=== PATIENT | female | born 1955 | race Caucasian/White ===

== ENCOUNTER 2020-04-13 15:23 | Emergency (ER) | payer OTHER, SELFPAY ==
[2020-04-13 15:30] VITALS: BP 136/65; PULSE 77; RESP 16; TEMP 36.4; O2SAT 100; BMI 19.5
--- NOTE | 2020-04-13 16:15 | DI.CT.S_ITS ---
PROCEDURE: CT HEAD/BRAIN WO CON INDICATIONS: psychosis TECHNIQUE: Noncontrast 4.5 mm thick angled axial sections acquired from the foramen magnum to the vertex, with coronal and sagittal reformats. For radiation dose reduction, the following was used: automated exposure control, adjustment of mA and/or kV according to patient size. COMPARISON: [facility], MR, MR BRAIN WITHOUT CONTRAST, 12/23/2019, 11:15. [facility], CT, CT BRAIN WO CON, 02/12/2015, 11:40. [facility], CT, BRAIN W/O CONTRAST, 01/04/2015, 15:37. FINDINGS: Image quality: Excellent. CSF spaces: Basal cisterns are patent. No extra-axial fluid collections. The ventricles are symmetric in size and shape. Brain: No intracranial bleeds or masses. There is cerebral volume loss for age, with resultant ventricular and sulcal prominence. There are periventricular and deep white matter chronic small vessel ischemic changes. There is intracranial internal carotid artery atherosclerosis. Skull and face: Calvarium and visualized facial bones appear intact, without suspicious lesions. Sinuses: Visualized sinuses and mastoids are clear. Postsurgical changes compatible with prior functional endoscopic sinus surgery noted. IMPRESSION: No acute intracranial disease process. Dictated by: Kristi Ray MD, PhD on 04/13/2020 at 16:29 Approved by: Kristi Ray MD, PhD on 04/13/2020 at 16:37
[2020-04-13 16:46] LABS: Add Manual Diff / Slide Review NO; Basophils Absolute Auto 100 /uL (0-100); Basophils Percent Auto 1.1 % (0-2); Eosinophils Absolute Auto 400 /uL (0-450); Eosinophils Percent Auto 5.9 % (2-4); Hematocrit 36.9 % (36-46); Hemoglobin 12.3 g/dL (12.0-16.0); Lymphocytes Absolute Auto 1300 /uL (1100-4500); Lymphocytes Percent Auto 21.3 % (25-40); Mean Corpuscular HGB Conc 33.3 % (30-36); Mean Corpuscular Hemoglobin 29.7 PG (26-34); Mean Corpuscular Volume 89.2 fL (80-100); Monocytes Absolute Auto 600 /uL (0-900); Monocytes Percent Auto 9.2 % (3-14); Neutrophils Absolute Auto 3800 /uL (1500-7000); Neutrophils Percent Auto 62.5 % (50-75); Platelet Count 213 X10^3/uL (150-400); Red Blood Cell Count 4.14 X10^6/uL (4.0-5.2); Red Cell Distribution Width 14.4 % (11.6-14.8); White Blood Cell Count 6.1 X10^3/uL (4.5-11.0)
[2020-04-13 16:57] LABS: UR Morphine/Opiate cutoff 300 Negative (Negative); Ur Creatinine Normal (Normal); Ur Specific Gravity Normal (Normal); Urine Amphetamines Negative (Negative); Urine Barbiturates Negative (Negative); Urine Benzodiazepines Positive (Negative); Urine Cocaine Negative (Negative); Urine MDMA Negative (Negative); Urine Methadone Negative (Negative); Urine Methamphetamines Negative (Negative); Urine Oxycodone Negative (Negative); Urine Phencyclidine Negative (Negative); Urine Tetrahydrocannabinol Negative (Negative); Urine Tricyclic Antidepressant Negative (Negative); Urine pH Normal (Normal)
[2020-04-13 16:58] LABS: Alanine Aminotransferase 17 IU/L (<35); Albumin 3.7 g/dL (3.5-5.0); Albumin Globulin Ratio 1.5 (1.0-2.8); Alkaline Phosphatase 69 U/L (38-126); Aspartate Aminotransferase 24 IU/L (14-36); BUN Creatinine Ratio 19.4 (6-22); Bilirubin Total 0.8 mg/dL (0.2-1.3); Blood Urea Nitrogen 14 mg/dL (7-17); Calcium 8.9 mg/dL (8.4-10.2); Carbon Dioxide 32 mmol/L (22-32); Chloride 103 mmol/L (98-107); Estimated Glomerular Filt Rate > 60.0 mL/min (>60); Globulin 2.5 g/dL (1.7-4.1); Glucose 101 mg/dL (80-110); HEMOLYSIS < 15 (0-50); Potassium 3.7 mmol/L (3.4-5.1); Sodium 138 mmol/L (137-145); Total Protein 6.2 g/dL (6.3-8.2)
[2020-04-13 16:59] LABS: Ethanol (ETOH) < 10 mg/dL
[2020-04-13 17:11] LABS: COVID19 -Nasal RAPID Negative (Negative)
[2020-04-13 17:39] LABS: Thyroid Stimulating Hormone 0.276 uIU/mL (0.47-4.68)
--- NOTE | 2020-04-13 17:41 | ED_ITS ---
HPI - Psych <Megan Patterson MD - Last Filed: 04/21/20 00:00> General Chief Complaint: Psychiatric Symptoms Stated Complaint: anxiety Time Seen by Provider: 04/13/20 15:46 Source: patient Mode of arrival: Ambulatory History of Present Illness HPI Narrative: 64-year-old woman sent by her psychiatrist to the emergency department for further evaluation. She has a long history of depression anxiety panic panic attacks and depression with psychosis for which she has been hospitalized. There is a question of schizoaffective disorder as well. She is on multiple medications and antidepressants are not helping at this point. She is having increasing suicidal ideation increasing panic increasingly DIS regulated and more memory issues today. At this point her psychiatrist feels that she is gravely disabled and needs to be evaluated by [facility] with probability of being detained. With 1 test she had have a positive syphilis screen. Patient has been seen by infectious disease specialist at [facility]. She apparently has a severe allergy to penicillin and has been placed on doxycycline. She is also scheduled to see an bordereau clerk to begin penicillin desensitization. Related Data Home Medications Medication Instructions Recorded Confirmed levothyroxine 50 mcg capsule 50 mcg PO DAILY 08/26/19 04/14/20 multivitamin 1 cap PO DAILY 08/26/19 04/10/20 omega-3 fatty acids 1,000 mg 1,000 mg PO DAILY 08/26/19 04/10/20 capsule propranolol 60 mg capsule,24 60 mg PO BID cap 08/26/19 04/14/20 hr,extended release sumatriptan succinate 100 mg tablet 100 mg PO ONCE PRN 08/26/19 04/14/20 amlodipine 5 mg tablet 5 mg PO BEDTIME 09/22/19 04/14/20 nystatin 500,000 unit tablet 1,000,000 unit PO BID tab 10/31/19 04/14/20 estradiol 10 mcg vaginal tablet 10 mcg VAG DAILY 04/10/20 04/10/20 gabapentin 900 mg PO BEDTIME 04/14/20 04/14/20 Previous Rx's Medication Instructions Recorded hydroxyzine HCl 10 mg tablet 10 mg PO Q6H PRN #120 tab MDD 40mg 01/16/20 vilazodone 40 mg tablet 40 mg PO DAILY #30 tab 04/02/20 risperidone 1 mg tablet 1 mg PO BEDTIME #30 tab 04/10/20 diazepam 5 mg tablet 5 mg PO BEDTIME PRN #30 tab 04/19/20 Allergies Allergy/AdvReac Type Severity Reaction Status Date / Time amoxicillin [From Augmentin] AdvReac Intermediate Diarrhea Verified 04/13/20 19:31 clavulanic acid AdvReac Intermediate Diarrhea Verified 04/13/20 19:31 [From Augmentin] Sulfa (Sulfonamide AdvReac Intermediate Shakiness Verified 04/13/20 19:31 Antibiotics) <Faraz Nagel DO - Last Filed: 04/15/20 00:31> Constitutional Constitutional: Denies chills, Denies fatigue, Denies fever(s), Denies frequent falls, Denies lethargy and Denies weakness Eyes Eyes: Denies change in vision, Denies eye discharge, Denies irritation and Denies loss of vision ENT Ears, Nose, Mouth, and Throat: Denies change in voice, Denies dizziness, Denies neck pain, Denies sore throat and Denies throat swelling Cardiovascular Cardiovascular: Denies chest pain, Denies irregular heart rhythm, Denies lightheadedness, Denies palpitations, Denies dyspnea, Denies dyspnea on exertion and Denies orthopnea Respiratory Respiratory: Denies cough, Denies dyspnea, Denies dyspnea on exertion and Denies wheezing Gastrointestinal Gastrointestinal: Denies abdominal pain, Denies change in bowel habits, Denies diarrhea, Denies nausea and Denies vomiting Musculoskeletal Musculoskeletal: Denies neck pain and Denies numbness Integumentary/Breasts Skin/Breast: Denies pruritus, Denies erythema, Denies rash and Denies wounds Neurologic Neurologic: Denies behavioral changes, Denies confusion, Denies dizziness, Denies frequent falls, Denies loss of vision, Denies numbness and Denies weakness Psychiatric Psychiatric: Reports anxiety, Denies behavioral changes, Denies confusion, Reports depression, Reports mood swings, Reports paranoia, Denies homicidal ideation and Reports suicidal ideation Endocrine Endocrine: Denies fatigue, Denies flushing and Denies palpitations Hematologic/Lymphatic Hematologic/Lymphatic: Denies easy bruising Allergic/Immunologic Allergic/Immunologic: Denies urticaria, Denies throat swelling and Denies wheezing Patient History <Megan Patterson MD - Last Filed: 04/21/20 00:00> Social History Smoking Status: Former smoker Smoking Status: Former smoker Exam <Megan Patterson MD - Last Filed: 04/21/20 00:00> Initial Vital Signs Initial Vital Signs: Vital Signs Temperature 97.6 F 04/13/20 15:30 Pulse Rate 77 04/13/20 15:30 Respiratory Rate 16 04/13/20 15:30 Blood Pressure 136/65 04/13/20 15:30 Pulse Oximetry 100 04/13/20 15:30 <Faraz Nagel DO - Last Filed: 04/15/20 00:31> Narrative Exam Narrative: GENERAL: [64] year old patient appears stated age. Well- nourished, well-developed patient, in moderate distress, tearful, anxious HEAD: Atraumatic. Normocephalic. EYES: Pupils equal round and reactive. Extraocular motions intact. No scleral icterus. No injection or drainage. ENT: Nose without bleeding, purulent drainage. Throat without erythema, tonsillar hypertrophy or exudate. Airway patent. NECK: Trachea midline. Non tender CARDIOVASCULAR: Regular rate and rhythm without murmurs, gallops, or rubs. RESPIRATORY: Clear to auscultation. Breath sounds equal bilaterally. No wheezes, rales, or rhonchi. GASTROINTESTINAL: Abdomen soft, non-tender, nondistended. EXTREMITIES: No edema or joint tenderness. BACK: Nontender without deformity or crepitance. No flank tenderness. NEURO: AOx3. SKIN: No rash or erythema of visible areas Initial Vital Signs Initial Vital Signs: Vital Signs Temperature 97.6 F 04/13/20 15:30 Pulse Rate 77 04/13/20 15:30 Respiratory Rate 16 04/13/20 15:30 Blood Pressure 136/65 04/13/20 15:30 Pulse Oximetry 100 04/13/20 15:30 <Astrid Lowry DO - Last Filed: 04/15/20 07:23> Initial Vital Signs Initial Vital Signs: Vital Signs Temperature 97.6 F 04/13/20 15:30 Pulse Rate 77 04/13/20 15:30 Respiratory Rate 16 04/13/20 15:30 Blood Pressure 136/65 04/13/20 15:30 Pulse Oximetry 100 04/13/20 15:30 Course <Megan Patterson MD - Last Filed: 04/21/20 00:00> Orders Ordered: Discontinued Medications Diazepam (Valium) 5 mg PO NOW ONE Stop: 04/14/20 00:10 Last Admin: 04/14/20 00:27 Dose: 5 mg Documented by: JOVI Gabapentin (Neurontin) 600 mg PO NOW ONE Stop: 04/13/20 23:16 Last Admin: 04/14/20 00:06 Dose: 600 mg Documented by: JOVI Gabapentin (Neurontin) 900 mg PO BEDTIME [facility] Levothyroxine Sodium (Synthroid) 50 mcg PO 0600 [facility] Last Admin: 04/14/20 08:36 Dose: 50 mcg Documented by: DIDI Lorazepam (Ativan) 1 mg PO NOW ONE Stop: 04/13/20 19:27 Last Admin: 04/13/20 19:45 Dose: 1 mg Documented by: JOHN Propranolol HCl (Inderal La) 60 mg PO NOW ONE Stop: 04/13/20 23:14 Last Admin: 04/14/20 00:46 Dose: Not Given Documented by: JOVI Propranolol HCl (Inderal) 60 mg PO NOW ONE Stop: 04/13/20 23:51 Last Admin: 04/14/20 03:07 Dose: Not Given Documented by: JOVI Propranolol HCl (Inderal La) 60 mg PO DAILY [facility] Last Admin: 04/14/20 08:36 Dose: 60 mg Documented by: DIDI Risperidone (Risperdal) 1 mg PO NOW ONE Stop: 04/13/20 23:16 Last Admin: 04/14/20 00:06 Dose: 1 mg Documented by: JOVI Risperidone (Risperdal) 1 mg PO DAILY [facility] Last Admin: 04/14/20 10:31 Dose: Not Given Documented by: DIDI Vital Signs Vital signs: Vital Signs - 8 hr 04/14/20 19:23 Pulse Rate 71 Respiratory Rate 18 Blood Pressure 132/64 Pulse Oximetry 99 <Faraz Nagel DO - Last Filed: 04/15/20 00:31> Course Course Narrative: extensive discussion with MICHELLE, please see his note for de tails. Patient currently voluntary. Pursuing bed placement at [facility] 2129 - [facility] calls and no longer has an appropriate bed 2214 - nursing has called other facilities, possible option is [facility], but they have no ability to entertain intake tonight. 0049 - patient resting comfortably. Aware that she will be with us for the evening. Orders Ordered: Discontinued Medications Diazepam (Valium) 5 mg PO NOW ONE Stop: 04/14/20 00:10 Last Admin: 04/14/20 00:27 Dose: 5 mg Documented by: JOVI Gabapentin (Neurontin) 600 mg PO NOW ONE Stop: 04/13/20 23:16 Last Admin: 04/14/20 00:06 Dose: 600 mg Documented by: JOVI Gabapentin (Neurontin) 900 mg PO BEDTIME [facility] Levothyroxine Sodium (Synthroid) 50 mcg PO 0600 [facility] Last Admin: 04/14/20 08:36 Dose: 50 mcg Documented by: DIDI Lorazepam (Ativan) 1 mg PO NOW ONE Stop: 04/13/20 19:27 Last Admin: 04/13/20 19:45 Dose: 1 mg Documented by: JOHN Propranolol HCl (Inderal La) 60 mg PO NOW ONE Stop: 04/13/20 23:14 Last Admin: 04/14/20 00:46 Dose: Not Given Documented by: JOVI Propranolol HCl (Inderal) 60 mg PO NOW ONE Stop: 04/13/20 23:51 Last Admin: 04/14/20 03:07 Dose: Not Given Documented by: JOVI Propranolol HCl (Inderal La) 60 mg PO DAILY [facility] Last Admin: 04/14/20 08:36 Dose: 60 mg Documented by: DIDI Risperidone (Risperdal) 1 mg PO NOW ONE Stop: 04/13/20 23:16 Last Admin: 04/14/20 00:06 Dose: 1 mg Documented by: JOVI Risperidone (Risperdal) 1 mg PO DAILY [facility] Last Admin: 04/14/20 10:31 Dose: Not Given Documented by: DIDI Vital Signs Vital signs: Vital Signs - 8 hr 04/14/20 19:23 Pulse Rate 71 Respiratory Rate 18 Blood Pressure 132/64 Pulse Oximetry 99 <Astrid Lowry DO - Last Filed: 04/15/20 07:23> Orders Ordered: Discontinued Medications Diazepam (Valium) 5 mg PO NOW ONE Stop: 04/14/20 00:10 Last Admin: 04/14/20 00:27 Dose: 5 mg Documented by: JOVI Gabapentin (Neurontin) 600 mg PO NOW ONE Stop: 04/13/20 23:16 Last Admin: 04/14/20 00:06 Dose: 600 mg Documented by: JOVI Gabapentin (Neurontin) 900 mg PO BEDTIME [facility] Levothyroxine Sodium (Synthroid) 50 mcg PO 0600 [facility] Last Admin: 04/14/20 08:36 Dose: 50 mcg Documented by: DIDI Lorazepam (Ativan) 1 mg PO NOW ONE Stop: 04/13/20 19:27 Last Admin: 04/13/20 19:45 Dose: 1 mg Documented by: JOHN Propranolol HCl (Inderal La) 60 mg PO NOW ONE Stop: 04/13/20 23:14 Last Admin: 04/14/20 00:46 Dose: Not Given Documented by: JOVI Propranolol HCl (Inderal) 60 mg PO NOW ONE Stop: 04/13/20 23:51 Last Admin: 04/14/20 03:07 Dose: Not Given Documented by: JOVI Propranolol HCl (Inderal La) 60 mg PO DAILY [facility] Last Admin: 04/14/20 08:36 Dose: 60 mg Documented by: DIDI Risperidone (Risperdal) 1 mg PO NOW ONE Stop: 04/13/20 23:16 Last Admin: 04/14/20 00:06 Dose: 1 mg Documented by: JOVI Risperidone (Risperdal) 1 mg PO DAILY [facility] Last Admin: 04/14/20 10:31 Dose: Not Given Documented by: DIDI Vital Signs Vital signs: Vital Signs - 8 hr 04/14/20 19:23 Pulse Rate 71 Respiratory Rate 18 Blood Pressure 132/64 Pulse Oximetry 99 MDM - Psych <Megan Patterson MD - Last Filed: 04/21/20 00:00> Lab Data Result diagrams: 04/13/20 16:39 04/13/20 16:39 Labs: Lab Results 04/13/20 04/13/20 04/13/20 Range/Units 16:39 16:39 16:39 WBC 6.1 (4.5-11.0) X10^3/uL RBC 4.14 (4.0-5.2) X10^6/uL Hgb 12.3 (12.0-16.0) g/dL Hct 36.9 (36-46) % MCV 89.2 (80-100) fL MCH 29.7 (26-34) PG MCHC 33.3 (30-36) % RDW 14.4 (11.6-14.8) % Plt Count 213 (150-400) X10^3/uL Neut % (Auto) 62.5 (50-75) % Lymph % (Auto) 21.3 L (25-40) % Finney % (Auto) 9.2 (3-14) % Eos % (Auto) 5.9 H (2-4) % Baso % (Auto) 1.1 (0-2) % Neut # (Auto) 3800 (6941-0054) /uL Lymph # (Auto) 1300 (2355-8616) /uL Finney # (Auto) 600 (0-900) /uL Eos # (Auto) 400 (0-450) /uL Baso # (Auto) 100 (0-100) /uL Sodium 138 (137-145) mmol/L Potassium 3.7 (3.4-5.1) mmol/L Chloride 103 (98-107) mmol/L Carbon Dioxide 32 (22-32) mmol/L BUN 14 (7-17) mg/dL Creatinine 0.72 (0.52-1.04) mg/dL Estimated GFR > 60.0 (>60) mL/min BUN/Creatinine Ratio 19.4 (6-22) Glucose 101 (80-110) mg/dL Calcium 8.9 (8.4-10.2) mg/dL Total Bilirubin 0.8 (0.2-1.3) mg/dL AST 24 (14-36) IU/L ALT 17 (<35) IU/L Alkaline Phosphatase 69 (38-126) U/L Total Protein 6.2 L (6.3-8.2) g/dL Albumin 3.7 (3.5-5.0) g/dL Globulin 2.5 (1.7-4.1) g/dL Albumin/Globulin Ratio 1.5 (1.0-2.8) TSH (0.47-4.68) uIU/mL U Opiates 300ng/mL cut (Negative) Ur Oxycodone Screen (Negative) Urine Methadone Screen (Negative) Ur Barbiturates Screen (Negative) U Tricyclic Antidepress (Negative) Ur Phencyclidine Scrn (Negative) Ur Amphetamines Screen (Negative) U Methamphetamines Scrn (Negative) Ur MDMA Scrn (Ecstasy) (Negative) U Benzodiazepines Scrn (Negative) Urine Cocaine Screen (Negative) U Marijuana (THC) Screen (Negative) Ethyl Alcohol < 10 ( - 10) mg/dL COVID-19 PCR (Negative) 04/13/20 04/13/20 04/13/20 Range/Units 16:39 16:40 16:50 WBC (4.5-11.0) X10^3/uL RBC (4.0-5.2) X10^6/uL Hgb (12.0-16.0) g/dL Hct (36-46) % MCV (80-100) fL MCH (26-34) PG MCHC (30-36) % RDW (11.6-14.8) % Plt Count (150-400) X10^3/uL Neut % (Auto) (50-75) % Lymph % (Auto) (25-40) % Finney % (Auto) (3-14) % Eos % (Auto) (2-4) % Baso % (Auto) (0-2) % Neut # (Auto) (3195-2686) /uL Lymph # (Auto) (6411-9210) /uL Finney # (Auto) (0-900) /uL Eos # (Auto) (0-450) /uL Baso # (Auto) (0-100) /uL Sodium (137-145) mmol/L Potassium (3.4-5.1) mmol/L Chloride (98-107) mmol/L Carbon Dioxide (22-32) mmol/L BUN (7-17) mg/dL Creatinine (0.52-1.04) mg/dL Estimated GFR (>60) mL/min BUN/Creatinine Ratio (6-22) Glucose (80-110) mg/dL Calcium (8.4-10.2) mg/dL Total Bilirubin (0.2-1.3) mg/dL AST (14-36) IU/L ALT (<35) IU/L Alkaline Phosphatase (38-126) U/L Total Protein (6.3-8.2) g/dL Albumin (3.5-5.0) g/dL Globulin (1.7-4.1) g/dL Albumin/Globulin Ratio (1.0-2.8) TSH 0.276 L (0.47-4.68) uIU/mL U Opiates 300ng/mL cut Negative (Negative) Ur Oxycodone Screen Negative (Negative) Urine Methadone Screen Negative (Negative) Ur Barbiturates Screen Negative (Negative) U Tricyclic Antidepress Negative (Negative) Ur Phencyclidine Scrn Negative (Negative) Ur Amphetamines Screen Negative (Negative) U Methamphetamines Scrn Negative (Negative) Ur MDMA Scrn (Ecstasy) Negative (Negative) U Benzodiazepines Scrn Positive H (Negative) Urine Cocaine Screen Negative (Negative) U Marijuana (THC) Screen Negative (Negative) Ethyl Alcohol ( - 10) mg/dL COVID-19 PCR Negative (Negative) <Faraz Nagel, DO - Last Filed: 04/15/20 00:31> Lab Data Labs: Lab Results 04/13/20 04/13/20 04/13/20 Range/Units 16:39 16:39 16:39 WBC 6.1 (4.5-11.0) X10^3/uL RBC 4.14 (4.0-5.2) X10^6/uL Hgb 12.3 (12.0-16.0) g/dL Hct 36.9 (36-46) % MCV 89.2 (80-100) fL MCH 29.7 (26-34) PG MCHC 33.3 (30-36) % RDW 14.4 (11.6-14.8) % Plt Count 213 (150-400) X10^3/uL Neut % (Auto) 62.5 (50-75) % Lymph % (Auto) 21.3 L (25-40) % Finney % (Auto) 9.2 (3-14) % Eos % (Auto) 5.9 H (2-4) % Baso % (Auto) 1.1 (0-2) % Neut # (Auto) 3800 (7168-2439) /uL Lymph # (Auto) 1300 (2149-2878) /uL Finney # (Auto) 600 (0-900) /uL Eos # (Auto) 400 (0-450) /uL Baso # (Auto) 100 (0-100) /uL Sodium 138 (137-145) mmol/L Potassium 3.7 (3.4-5.1) mmol/L Chloride 103 (98-107) mmol/L Carbon Dioxide 32 (22-32) mmol/L BUN 14 (7-17) mg/dL Creatinine 0.72 (0.52-1.04) mg/dL Estimated GFR > 60.0 (>60) mL/min BUN/Creatinine Ratio 19.4 (6-22) Glucose 101 (80-110) mg/dL Calcium 8.9 (8.4-10.2) mg/dL Total Bilirubin 0.8 (0.2-1.3) mg/dL AST 24 (14-36) IU/L ALT 17 (<35) IU/L Alkaline Phosphatase 69 (38-126) U/L Total Protein 6.2 L (6.3-8.2) g/dL Albumin 3.7 (3.5-5.0) g/dL Globulin 2.5 (1.7-4.1) g/dL Albumin/Globulin Ratio 1.5 (1.0-2.8) TSH (0.47-4.68) uIU/mL U Opiates 300ng/mL cut (Negative) Ur Oxycodone Screen (Negative) Urine Methadone Screen (Negative) Ur Barbiturates Screen (Negative) U Tricyclic Antidepress (Negative) Ur Phencyclidine Scrn (Negative) Ur Amphetamines Screen (Negative) U Methamphetamines Scrn (Negative) Ur MDMA Scrn (Ecstasy) (Negative) U Benzodiazepines Scrn (Negative) Urine Cocaine Screen (Negative) U Marijuana (THC) Screen (Negative) Ethyl Alcohol < 10 ( - 10) mg/dL COVID-19 PCR (Negative) 04/13/20 04/13/20 04/13/20 Range/Units 16:39 16:40 16:50 WBC (4.5-11.0) X10^3/uL RBC (4.0-5.2) X10^6/uL Hgb (12.0-16.0) g/dL Hct (36-46) % MCV (80-100) fL MCH (26-34) PG MCHC (30-36) % RDW (11.6-14.8) % Plt Count (150-400) X10^3/uL Neut % (Auto) (50-75) % Lymph % (Auto) (25-40) % Finney % (Auto) (3-14) % Eos % (Auto) (2-4) % Baso % (Auto) (0-2) % Neut # (Auto) (7882-4451) /uL Lymph # (Auto) (9922-3344) /uL Finney # (Auto) (0-900) /uL Eos # (Auto) (0-450) /uL Baso # (Auto) (0-100) /uL Sodium (137-145) mmol/L Potassium (3.4-5.1) mmol/L Chloride (98-107) mmol/L Carbon Dioxide (22-32) mmol/L BUN (7-17) mg/dL Creatinine (0.52-1.04) mg/dL Estimated GFR (>60) mL/min BUN/Creatinine Ratio (6-22) Glucose (80-110) mg/dL Calcium (8.4-10.2) mg/dL Total Bilirubin (0.2-1.3) mg/dL AST (14-36) IU/L ALT (<35) IU/L Alkaline Phosphatase (38-126) U/L Total Protein (6.3-8.2) g/dL Albumin (3.5-5.0) g/dL Globulin (1.7-4.1) g/dL Albumin/Globulin Ratio (1.0-2.8) TSH 0.276 L (0.47-4.68) uIU/mL U Opiates 300ng/mL cut Negative (Negative) Ur Oxycodone Screen Negative (Negative) Urine Methadone Screen Negative (Negative) Ur Barbiturates Screen Negative (Negative) U Tricyclic Antidepress Negative (Negative) Ur Phencyclidine Scrn Negative (Negative) Ur Amphetamines Screen Negative (Negative) U Methamphetamines Scrn Negative (Negative) Ur MDMA Scrn (Ecstasy) Negative (Negative) U Benzodiazepines Scrn Positive H (Negative) Urine Cocaine Screen Negative (Negative) U Marijuana (THC) Screen Negative (Negative) Ethyl Alcohol ( - 10) mg/dL COVID-19 PCR Negative (Negative) <Astrid Lowry DO - Last Filed: 04/15/20 07:23> Lab Data Attestation: I reviewed the patient's lab results. Labs: Lab Results 04/13/20 04/13/20 04/13/20 Range/Units 16:39 16:39 16:39 WBC 6.1 (4.5-11.0) X10^3/uL RBC 4.14 (4.0-5.2) X10^6/uL Hgb 12.3 (12.0-16.0) g/dL Hct 36.9 (36-46) % MCV 89.2 (80-100) fL MCH 29.7 (26-34) PG MCHC 33.3 (30-36) % RDW 14.4 (11.6-14.8) % Plt Count 213 (150-400) X10^3/uL Neut % (Auto) 62.5 (50-75) % Lymph % (Auto) 21.3 L (25-40) % Finney % (Auto) 9.2 (3-14) % Eos % (Auto) 5.9 H (2-4) % Baso % (Auto) 1.1 (0-2) % Neut # (Auto) 3800 (3767-8135) /uL Lymph # (Auto) 1300 (6711-1774) /uL Finney # (Auto) 600 (0-900) /uL Eos # (Auto) 400 (0-450) /uL Baso # (Auto) 100 (0-100) /uL Sodium 138 (137-145) mmol/L Potassium 3.7 (3.4-5.1) mmol/L Chloride 103 (98-107) mmol/L Carbon Dioxide 32 (22-32) mmol/L BUN 14 (7-17) mg/dL Creatinine 0.72 (0.52-1.04) mg/dL Estimated GFR > 60.0 (>60) mL/min BUN/Creatinine Ratio 19.4 (6-22) Glucose 101 (80-110) mg/dL Calcium 8.9 (8.4-10.2) mg/dL Total Bilirubin 0.8 (0.2-1.3) mg/dL AST 24 (14-36) IU/L ALT 17 (<35) IU/L Alkaline Phosphatase 69 (38-126) U/L Total Protein 6.2 L (6.3-8.2) g/dL Albumin 3.7 (3.5-5.0) g/dL Globulin 2.5 (1.7-4.1) g/dL Albumin/Globulin Ratio 1.5 (1.0-2.8) TSH (0.47-4.68) uIU/mL U Opiates 300ng/mL cut (Negative) Ur Oxycodone Screen (Negative) Urine Methadone Screen (Negative) Ur Barbiturates Screen (Negative) U Tricyclic Antidepress (Negative) Ur Phencyclidine Scrn (Negative) Ur Amphetamines Screen (Negative) U Methamphetamines Scrn (Negative) Ur MDMA Scrn (Ecstasy) (Negative) U Benzodiazepines Scrn (Negative) Urine Cocaine Screen (Negative) U Marijuana (THC) Screen (Negative) Ethyl Alcohol < 10 ( - 10) mg/dL COVID-19 PCR (Negative) 04/13/20 04/13/20 04/13/20 Range/Units 16:39 16:40 16:50 WBC (4.5-11.0) X10^3/uL RBC (4.0-5.2) X10^6/uL Hgb (12.0-16.0) g/dL Hct (36-46) % MCV (80-100) fL MCH (26-34) PG MCHC (30-36) % RDW (11.6-14.8) % Plt Count (150-400) X10^3/uL Neut % (Auto) (50-75) % Lymph % (Auto) (25-40) % Finney % (Auto) (3-14) % Eos % (Auto) (2-4) % Baso % (Auto) (0-2) % Neut # (Auto) (2539-7310) /uL Lymph # (Auto) (9206-8869) /uL Finney # (Auto) (0-900) /uL Eos # (Auto) (0-450) /uL Baso # (Auto) (0-100) /uL Sodium (137-145) mmol/L Potassium (3.4-5.1) mmol/L Chloride (98-107) mmol/L Carbon Dioxide (22-32) mmol/L BUN (7-17) mg/dL Creatinine (0.52-1.04) mg/dL Estimated GFR (>60) mL/min BUN/Creatinine Ratio (6-22) Glucose (80-110) mg/dL Calcium (8.4-10.2) mg/dL Total Bilirubin (0.2-1.3) mg/dL AST (14-36) IU/L ALT (<35) IU/L Alkaline Phosphatase (38-126) U/L Total Protein (6.3-8.2) g/dL Albumin (3.5-5.0) g/dL Globulin (1.7-4.1) g/dL Albumin/Globulin Ratio (1.0-2.8) TSH 0.276 L (0.47-4.68) uIU/mL U Opiates 300ng/mL cut Negative (Negative) Ur Oxycodone Screen Negative (Negative) Urine Methadone Screen Negative (Negative) Ur Barbiturates Screen Negative (Negative) U Tricyclic Antidepress Negative (Negative) Ur Phencyclidine Scrn Negative (Negative) Ur Amphetamines Screen Negative (Negative) U Methamphetamines Scrn Negative (Negative) Ur MDMA Scrn (Ecstasy) Negative (Negative) U Benzodiazepines Scrn Positive H (Negative) Urine Cocaine Screen Negative (Negative) U Marijuana (THC) Screen Negative (Negative) Ethyl Alcohol ( - 10) mg/dL COVID-19 PCR Negative (Negative) MDM Narrative Medical decision making narrative: Patient is signed out to me by Dr. Nagel I have seen and evaluated patient myself. She is quite cooperative seems to be v oluntary and still wanting placement. She really wants to go the [facility] like Dr. Alexis has recommended. However social work has been reviewing charts and looking at places. Concern is that there is recommendation for neuropsych possibly early dementia and she still requires self catheterization. Placement has become very difficult she has been refused at least 3 different places. Spoken with the patient's he states that today she seems like a new person he is quite shocked because the past few weeks she has been much of what was seen yesterday. This may be short lived. I discussed with him being able to take patient home versus having her stay in the ER saying is that there is no placement. He is actually off work for the next 2 days he would be very comf ortable bringing her home however patient is uncertain about that idea. At this time patient would prefer to go home she understands that she may return back to the ER at any time. 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 Alexis as soon as possible please call her office Thursday are notes will be sent to her. You do need to get into the [facility] however that is not an option at this time If you are feeling suicidal or having suicidal thoughts: Call: Suicide Hotline: Visit: www.[employer] Text: 056767 *Continue to take medications as directed *Follow up with your primary care provider in 2-3 days *Return to ER if you should have increased thoughts of suicide, increase confusion or any new, worsening or concerning symptoms Prescriptions: No Action estradiol [Yuvafem] 10 mcg tablet 10 mcg VAG DAILY RF: 0 risperidone 1 mg tablet 1 mg PO BEDTIME Qty: 30 RF: 0 propranolol 60 mg capsule,extended release 24 hr 60 mg PO BID RF: 0 levothyroxine 50 mcg capsule 50 mcg PO DAILY RF: 0 sumatriptan succinate [Imitrex] 100 mg tablet 100 mg PO ONCE PRN (Reason: migraine headache) RF: 0 multivitamin Capsule 1 cap PO DAILY RF: 0 omega-3 fatty acids [Fish Oil Concentrate] 1,000 mg capsule 1,000 mg PO DAILY RF: 0 nystatin 500,000 unit tablet 1,000,000 unit PO BID RF: 0 hydroxyzine HCl 10 mg tablet 10 mg PO Q6H MDD 40mg PRN (Reason: severe anxiety) Qty: 120 RF: 1 amlodipine 5 mg tablet 5 mg PO BEDTIME RF: 0 Viibryd 40 mg tablet 40 mg PO DAILY Qty: 30 RF: 0 diazepam 5 mg tablet 5 mg PO BEDTIME PRN (Reason: sleep/anxiety) Qty: 30 RF: 0 gabapentin 600 mg tablet 900 mg PO BEDTIME RF: 0 Referrals: Anitra Alexis DO [Physician] - ED Sign-out <Megan Patterson MD - Last Filed: 04/21/20 00:00> Cosign ED Attending Cosignature Attestation: I was immediately available in the department for consultation throughout this patient's visit. I agree with documentation as above. Megan Patterson MD
[2020-04-13] MEDS: LORazepam 0.5 MG TABLET 1 MG PO (19:45)
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
--- NOTE | 2020-04-13 20:59 | PC.NURSE ---
Pt lying on gurney crying Pt states I dont want to go to [facility] I have been there twice before and it was horrible
--- NOTE | 2020-04-13 21:12 | PC.NURSE ---
Pt was declined at [facility].
--- NOTE | 2020-04-13 21:25 | PC.NURSE ---
Pt went to use restroom with her purse. Sitter requested door to remain unlocked. Pt belonings have been bagged and put in secure storage until Pt leaves ED
--- NOTE | 2020-04-13 21:33 | PC.NURSE ---
Nurse in talking with Pt about being denied at [facility].
--- NOTE | 2020-04-13 22:02 | PC.NURSE ---
Pt is on phone laying in bed.
--- NOTE | 2020-04-13 22:30 | PC.NURSE ---
Pt was provided face wash and toothpaste plus tooth brush to prepare for bed
[2020-04-13 23:26] VITALS: BP 152/79; PULSE 71; RESP 18; O2SAT 100
--- NOTE | 2020-04-14 | PC.NURSE ---
Bianca in dotty w/ Pt
--- NOTE | 2020-04-14 00:05 | PC.NURSE ---
Per Robe, propranolol held since we do not have ER available and pt BP 152/79, he will order diazepam instead.
[2020-04-14] MEDS: GABAPENTIN 600 MG TABLET PO (00:06)
[2020-04-14] MEDS: risperiDONE 1 MG TABLET PO (00:06)
[2020-04-14] MEDS: diazePAM 5 MG TABLET PO (00:27)
--- NOTE | 2020-04-14 02:30 | PC.NURSE ---
Pt using restroom
--- NOTE | 2020-04-14 03:32 | PC.NURSE ---
Tried calling multiple facilities for placement. No bed available. [facility] had beds available. Sent pt's information. was informed pt's packet would not be reviewed until morning
--- NOTE | 2020-04-14 06:47 | PC.NURSE ---
Pt was declined at [facility], R/t medical.
[2020-04-14 08:17] VITALS: BP 118/66; PULSE 95; RESP 17; O2SAT 99
[2020-04-14] MEDS: LEVOTHYROXINE 50 MCG TABLET PO (08:36)
[2020-04-14] MEDS: PROPRANOLOL ER 60 MG CAPSULE PO (08:36)
--- NOTE | 2020-04-14 08:49 | PC.NURSE ---
scial worker at bedside for eval
--- NOTE | 2020-04-14 10:15 | CM.SWNOTE ---
Addendum entered by MICHELLE Yost 04/14/20 14:34: Attempted following facilities: [facility]- will not accept anyone who self [facility]- Full [facility]- Full on adult unit [facility]- Declined [facility], [facility]- currently reviewing records Original Note: FIELD TECH Note Reviewed chart, spoke w/Dr Lowry who suggests patient remains a good candidate for voluntary psychiatric care. Met w/patient this morning to introduce self. Patient standing up in room and flossing. Patient in better spirits this morning, welcomes this FIELD TECH in room, makes good eye contact, conversation is fluid and patient able to communicate needs well. Patient calm and compliant w/care according to staff. Patient A+Ox4. Patient reviews events of yesterday and states immediately that she is not ready to go home. She feels at peace in the notion that she could go to an inpatient psychiatric unit today and does not feel safe returning home w/her family today. Patient Questioned patient as to why she doesn't feel safe and she further explained that she has been struggling w/severe and crippling symptoms of PTSD; depression and anxiety for years but mood swings, paranoia and thoughts of suicide have increased over the last week. Patient states w/in the last two weeks, Everyone is done with me patient admits to thoughts throughout the day of using a gun to kill herself to end it. Patient's and son in law are gun owners and keep guns locked up in house although patient remarks I could figure it out if I needed to (safe lock) Patient admits today she is exhausted and feels desperation; patient has felt the inpatient setting (x2) in the past 6 years has been helpful for crisis stabilization and she is optimistic this FIELD TECH can secure placement today from ED. Will attempt inpatient psychiatric placement as patient would benefit from inpatient stabilization before return home w/family and continued outpatient f/u w/ psychiatrist MICHELLE Yost
--- NOTE | 2020-04-14 16:10 | PC.NURSE ---
director social at bedside to review and update poc with pt
--- NOTE | 2020-04-14 16:15 | PC.NURSE ---
foot worker in room with Pt
--- NOTE | 2020-04-14 19:03 | PC.NURSE ---
Pt in room
[2020-04-14 19:23] VITALS: BP 132/64; PULSE 71; RESP 18; O2SAT 99
== END 2020-04-14 19:25 | disposition home or self-care (01) ==
PROVIDERS: Emergency Medicine; Emergency Provider Emergency Medicine
DX: R45.851 Suicidal ideations (principal); F23 Brief psychotic disorder
CPT/HCPCS: 36415; 70450; 80053; 80305; 80320; 84443; 85025; 87635; 99284

== ENCOUNTER → 2021-05-17 14:53 | Outpatient (CLI) | payer OTHER, SELFPAY ==
[2021-05-17 15:12] LABS: Add Manual Diff / Slide Review NO; Basophils Absolute Auto 0 /uL (0-100); Basophils Percent Auto 0.6 % (0-2); Eosinophils Absolute Auto 100 /uL (0-450); Eosinophils Percent Auto 1.8 % (2-4); Hematocrit 38.6 % (36-46); Lymphocytes Absolute Auto 1200 /uL (1100-4500); Lymphocytes Percent Auto 20.6 % (25-40); Mean Corpuscular HGB Conc 33.6 % (30-36); Mean Corpuscular Volume 89.3 fL (80-100); Monocytes Absolute Auto 500 /uL (0-900); Monocytes Percent Auto 8.4 % (3-14); Neutrophils Absolute Auto 4000 /uL (1500-7000); Neutrophils Percent Auto 68.6 % (50-75); Platelet Count 233 X10^3/uL (150-400); Red Blood Cell Count 4.32 X10^6/uL (4.0-5.2); Red Cell Distribution Width 14.3 % (11.6-14.8); White Blood Cell Count 5.8 X10^3/uL (4.5-11.0)
[2021-05-17 16:57] LABS: Alanine Aminotransferase 18 IU/L (<35); Albumin 4.1 g/dL (3.5-5.0); Albumin Globulin Ratio 1.6 (1.0-2.8); Alkaline Phosphatase 65 U/L (38-126); Aspartate Aminotransferase 27 IU/L (14-36); BUN Creatinine Ratio 18.5 (6-22); Bilirubin Total 0.7 mg/dL (0.2-1.3); Blood Urea Nitrogen 15 mg/dL (7-17); Calcium 9.3 mg/dL (8.4-10.2); Carbon Dioxide 32 mmol/L (22-32); Chloride 104 mmol/L (98-107); Estimated Glomerular Filt Rate > 60.0 mL/min (>60); Globulin 2.6 g/dL (1.7-4.1); Glucose 94 mg/dL (80-110); HEMOLYSIS < 15 (0-50); Potassium 4.1 mmol/L (3.4-5.1); Sodium 141 mmol/L (137-145); Total Protein 6.7 g/dL (6.3-8.2)
[2021-05-17 17:28] LABS: Thyroid Stimulating Hormone 0.141 uIU/mL (0.47-4.68)
== END ==
PROVIDERS: Referring Provider Psychiatry & Neurology Psychiatry; Visit Provider Psychiatry & Neurology Psychiatry
DX: F33.1 Major depressive disorder, recurrent, moderate (principal); F40.01 Agoraphobia with panic disorder
CPT/HCPCS: 36415; 80053; 84443; 85025

== ENCOUNTER → 2021-09-20 13:31 | Outpatient (CLI) | payer OTHER, SELFPAY ==
[2021-09-20 15:14] LABS: COVID19 -Nasal RAPID Negative (Negative)
== END ==
PROVIDERS: PCP Nurse Practitioner Family; Visit Provider Nurse Practitioner Family
DX: Z20.822 Contact with and (suspected) exposure to COVID-19 (principal)
CPT/HCPCS: 87635

== ENCOUNTER → 2021-09-20 14:31 | Outpatient (CLI) | payer OTHER, SELFPAY ==
--- NOTE | 2021-09-20 | DI.CT.S_ITS ---
PROCEDURE: CT LUMBAR SPINE WO CON INDICATIONS: Spinal stenosis, lumbar region without neurogenic claudication TECHNIQUE: Noncontrast 3 mm thick sections acquired from the T12 level to the sacrum. Sagittal and coronal reformats were constructed. For radiation dose reduction, the following was used: automated exposure control. COMPARISON: None. FINDINGS: Image quality: Excellent. Bones: There is normal bony alignment. No acute vertebral body compression fractures. No suspicious lytic or blastic bony lesions. No pars defects. Degenerative grade 1 anterior spondylolisthesis noted L3-4. T12-L1: Disc height is preserved. No central or foraminal stenosis L1-L2: Disc height is preserved. No central or foraminal stenosis L2-L3: Disc height is preserved. There is a circumferential disc bulge and mild hypertrophic facet joints resulting in mild central stenosis. Mild left and no right foraminal stenosis. L3-L4: Disc space narrowing and circumferential disc bulge combined with hypertrophic facet joints result in severe central stenosis. Moderate bilateral foraminal stenosis present. L4-L5: Disc space narrowing and circumferential disc bulge results in mild central stenosis. Hypertrophic facet joints present. Moderate bilateral foraminal stenosis present. L5-S1: Disc space narrowing and circumferential disc bulge noted with mild central stenosis. Severe left and severe right foraminal stenosis present. Soft tissues: No retroperitoneal masses or hematomas. Visualized aorta is normal in caliber. IMPRESSION: Multilevel degenerative disc disease and arthropathy results in varying degrees of central and foraminal stenosis, including severe central stenosis at L3-4 Approved by: Hitesh Hayes M.D. on 09/20/2021 at 16:01
== END ==
PROVIDERS: PCP Family Medicine; Referring Provider Orthopaedic Surgery Orthopaedic Surgery of the Spine; Visit Provider Orthopaedic Surgery Orthopaedic Surgery of the Spine
DX: M48.061 Spinal stenosis, lumbar region without neurogenic claudication (principal); M48.07 Spinal stenosis, lumbosacral region; M51.36 Other intervertebral disc degeneration, lumbar region; M51.37 Other intervertebral disc degeneration, lumbosacral region; M47.816 Spondylosis without myelopathy or radiculopathy, lumbar region; M47.817 Spondylosis without myelopathy or radiculopathy, lumbosacral region; Z20.822 Contact with and (suspected) exposure to COVID-19
CPT/HCPCS: 72131; 87635; C9803

== ENCOUNTER 2021-09-24 14:16 | Observation (INO) | payer OTHER, SELFPAY ==
[2021-09-16 09:43] VITALS: BMI 19.3
[2021-09-23] VITALS (23 sets, daily range): BP systolic 113–149; BP diastolic 57–80; PULSE 54–68; RESP 12–18; TEMP 36.1–36.7; O2SAT 92–100; BMI 19.3
--- NOTE | 2021-09-23 | DI.RAD.S_ITS ---
PROCEDURE: XR LUMBAR SPINE 2-3V INDICATIONS: L3-S1 TLIF TECHNIQUE: 3 intraoperative fluoroscopic views of the lumbar spine were acquired. COMPARISON: None. FINDINGS/IMPRESSION: 3 nondiagnostic intraoperative fluoroscopic views of the lumbar spine demonstrate postsurgical changes L3-S1 posterior fixation by means of bilateral rods and pedicle screws with interbody devices. The hardware is intact with no evidence of fracture and appears to be in appropriate position. Dictated by: Delon Schroeder M.D. on 09/23/2021 at 13:58 Approved by: Delon Schroeder M.D. on 09/23/2021 at 13:59
[2021-09-23] MEDS: LACTATED RINGERS 1,000 ML 42 ML IV ×3 (07:07→13:46)
--- NOTE | 2021-09-23 07:25 | SUR.OPER ---
Prone on spine table, head in foam head support, padded chest and pelvic supports, gel pad at knees, lower legs supported by pillows; nipples, genitalia and toes free of pressure, arms secured on foam padded arm boards at <90 degrees abduction. Tape over blanket at thigh secured to table.
--- NOTE | 2021-09-23 07:49 | PM.PREOP ---
Pre-operative Note COVID-19 COVID-19 status: Negative Result date/Date tested (Pos, Neg/Pending): 09/22/21 Criteria for continued procedure: Expected advancement of disease process, Possibility delay results in more complex future surgery or treatment, Increased loss of function, Continuing or worsening of significant or severe pain, Deterioration of the patient's condition or overall health and Delay expected to result in less-positive ultimate med/surg outcome Interval Note History & Physical reviewed/Exam performed by Physician: Yes Changes to H&P: No
[2021-09-23] MEDS: CEFAZOLIN 2 GM/20 ML SYRINGE IV (08:00)
[2021-09-23] MEDS: BUPIVACAINE 0.25% (PF) 30 ML, EPINEPHrine 0.3 MG INJ (08:38)
[2021-09-23] MEDS: BUPIVACAINE LIPOSOME 266 MG/20 ML VIAL INJ (08:39)
--- NOTE | 2021-09-23 13:05 | P.OP_ITS ---
Operative Date/Time/Diagnoses Date of procedure: 09/23/21 Time of procedure: 07:45 Pre-op diagnosis: 1. L3-4, L4-5, L5-S1 spondylolisthesis 2. L3-4, L4-5, L5-S1 spinal stenosis Post-op diagnosis: same Procedure & Clinicians Procedure: 1. L3-4, L4-5, L5-S1 Postero-lateral and posterior interbody fusion 2. L3-4, L4-5, L5-S1 interbody cage placement. 3. L3-4, L4-5, L5-S1 decompressive laminectomy with bilateral facetecomies 4. L3-4, L4-5, L5-S1 Posterior segmental instrumentation 5. [place] of bone marrow from iliac crest 6. Utilization of microsurgical technique and operating microscope 7. Utilization of robotic navigation Same procedure as scheduled: Yes Indications: Patient has been having chronic back pain and worsening lumbar radiculopathy. Patient failed multiple conservative management with worsening pain weakness and numbness in her lower extremity. Patient has been having difficulty performing activity of daily living. After discussing risks benefits of treatment options, patient elected proceed with surgery. Surgeon: Phyllis Bucio Software Database Architect: Nohemi Monk Click Yes if Unassisted: No Anesthesia Type: General Operative Notes Closure Type: primary Specimen(s): none sent Prosthetic devices, grafts, tissues, transplants, or devices: Globus CREO MIS screws, Rise cages Applied: catheter Estimated Blood Loss (mL): 100 Blood products transfused: none Procedure in detail: Patient was seen in the preoperative area. Risks and benefits of the surgery was discussed with the patient. Informed consent was obtained from the patient and placed in the chart. Surgical site was marked. Patient was taken to the operative room. General anesthesia was administered. Prophylactic antibiotic was given to the patient less than 30 min before the incision was made. Patient was placed into a prone position on the [place] table. Patient's back was then prepped and draped in the sterile fashion. Time-out was performed at this time. After patient was prepped and draped, patient's PSIS was palpated and marked bilaterally. Small 1 cm incision was made over the PSIS for placement of the reference probes. Two trocar was placed into the PSIS 1 on each side. The reference probe was attached to the trocar of the reference apparatus. At this time the C-arm imaging was used to confirm AP and lateral of L3-4, L4- L5, L5-S1 vertebrae and merged the C-arm imaging using the [employer] robotic navigation system with the CT of the lumbar spine. After successful merging was completed and confirmed, skin marker was used to tammi out the skin incision using the [employer] robotic arm. Bilateral incision was made at this time. Pre templated trajectory was used and guided using the [employer] robotic navigation system for bilateral L3, L4, L5, S1 pedicle screw placement. This was done by using the robotic arm to guide the high-speed bur to make a cortical entry point. Next a drill was placed also using the robotic arm and guided using the navigation system drilling partially through bilateral L3, L4, L5 and S1 pedicles. Next L3, L4, L5, S1 pedicle screws it was pre templated and measured was placed onto the power bus driver and inserted into the pedicles bilaterally. After all 8 screws were placed C-arm imaging was taken of both AP and lateral to confirm the placement. Excellent placement of the screws were confirmed and a matched precisely with the pre planned screw placement using the navigation system. MARs retractor was inserted using croboivation guidence. Globus MARS retractors was placed inside the incision and docked onto the L3, L4 and L5 lamina. Using microsurgical technique and operating microscope, a L3, L4, L5 laminectomy and L3-4, L4-5, L5-S1 facetectomy was performed using a Kerrison rongeur. Patient was found have severe lateral recess and neural foramen stenosis which was fully decompressed after the laminectomy facetectomy. More than 75% of the facets were removed during the process of decompression rendering L3-4, L4-5, L5-S1 level grossly unstable and required a fusion procedure at the same time. The disc space at L3-4, L4-5, L5-S1 was identified, and a total diskectomy was performed at L3-4, L4-5, L5-S1 level. The endplates were decorticated using a rasp and shaver. The total diskectomy and decortication was performed at L3-4, L4-5, L5-S1 level in order to to accomplish a L3-4, L4-5, L5-S1 fusion. The local bone from the laminectomy and facetectomy was saved for local bone grafting. After the total diskectomy and decortication was completed, Trifecta bone graft material was combined with local bone that was harvested earlier. At this time, a separate skin is incision was made over the iliac crest. A Jamshidi needle was inserted into the iliac crest through a separate skin incision. 5 cc of bone marrow aspiration was obtained through the separate skin incision using a Jamshidi needle from the iliac crest. The bone marrow aspiration was combined with local bone and the Trifecta bone grafting material. The bone grafting material was placed into the L3-4, L4-5, L5-S1 interbody space along with a expandable cage. The cage was expanded to its maximum height using the torque limiting screwdriver. The disc preparation as well as the cage insertion were also performed under navigation guidance. After the cage was placed, AP and lateral C-arm imaging was taken to confirm placement of the cage and excellent position was confirmed. Globus MARS retractor was inserted and docked onto the L3-4, L4-5, L5-S1 posterolateral gutter on the right side. Using the power drill, posterior- lateral decortication was performed at L3-4, L4-5, L5-S1 level until bleeding cortical bone was identified. The remaining bone grafting material was placed into the L3-4, L4-5, L5-S1 posterior lateral gutter he order to accomplish post erolateral fusion at the L3-4, L4-5, L5-S1 level. At this time the tulips were attached to the L3, L4, L5, S1 pedicle screw shanks. After measuring the length of the rods, they were inserted into the tulips of the pedicle screws and locked in place using locking caps and torque limiting screwdriver bilaterally. Total 6 caps and 2 titanium rods was used in order to complete the posterior instrumentation construct. After all the hardware was placed, and confirmed with AP and lateral C-arm imaging, the wound was then irrigated with sterile normal saline and packed with Ray-Katharine gauze for 3 min to accomplish hemostasis. After the gauze was removed the deep fascia was closed with #1 Vicryl suture. The subcutaneous layer was closed with 2-0 Vicryl. The skin was closed with skin clint. Patient tolerated the procedure well. There were no complications. Neuro monitoring system was used to monitor patient's neurologic status throughout entire procedure. There was no disturbance of the neural monitoring signals throughout the case. Complications: none Post-operative Condition: stable Disposition: PACU Plan for aftercare: Admit to inpatient hospital
[2021-09-23] MEDS: HYDROMORPHONE 2 MG INJ IV ×3 (13:45→14:11)
[2021-09-23] MEDS: OXYCODONE/ACETAMINOPHEN 5/325 TABLET 1 TAB PO ×2 (13:52→14:22)
[2021-09-23] MEDS: SODIUM CHLORIDE 0.9% 1,000 ML 100 ML IV (15:51)
[2021-09-23] MEDS: CLINDAMYCIN 900 MG/50 ML PIGGYBACK 50 MG IV ×2 (15:54→23:14)
--- NOTE | 2021-09-23 17:55 | PC.NURSE ---
pt is eating her food, pain is tolerable at this time.
[2021-09-23] MEDS: hydrOXYzine pamoate 25 MG CAPSULE PO (18:26)
[2021-09-23] MEDS: OXYCODONE IR 10 MG TABLET PO ×2 (18:56→23:42)
[2021-09-23] MEDS: SENNOSIDES 8.6 MG TABLET 17.2 MG PO (20:23)
[2021-09-23] MEDS: GABAPENTIN 300 MG CAPSULE 900 MG PO (20:24)
[2021-09-23] MEDS: DOCUSATE 100 MG CAPSULE PO (20:24)
[2021-09-23] MEDS: lamoTRIgine 100 MG TABLET PO (20:24)
[2021-09-23] MEDS: CITALOPRAM 10 MG TABLET PO (20:24)
[2021-09-23] MEDS: AMLODIPINE 5 MG TABLET PO (20:29)
[2021-09-23] MEDS: ACETAMINOPHEN 325 MG TABLET 650 MG PO (23:42)
[2021-09-24] VITALS (8 sets, daily range): BP systolic 110–135; BP diastolic 49–70; PULSE 64–97; RESP 18–19; TEMP 37–38.1; O2SAT 92–99
[2021-09-24] MEDS: SODIUM CHLORIDE 0.9% 1,000 ML 100 ML IV (03:18)
[2021-09-24] MEDS: OXYCODONE IR 10 MG TABLET PO ×4 (03:19→23:45)
[2021-09-24 05:47] LABS: Hematocrit 33.3 % (36-46); Hemoglobin 11.2 g/dL (12.0-16.0)
--- NOTE | 2021-09-24 07:18 | PM.PNPO.1 ---
Subjective Subjective Date Patient Seen: 09/24/21 Time Patient Seen: 07:18 Interval history: Patient is complaining of moderate low back pain this morning. She denies any new numbness or tingling. No nausea or vomiting. She did not work with physical therapy yesterday. Exam Vital Signs (past 8 hours): - 09/24/21 00:00 09/24/21 04:09 Temperature 98.7 F 98.9 F Pulse Rate 68 64 Respiratory Rate 18 18 Blood Pressure 114/56 L 110/57 L Pulse Oximetry 99 99 Oxygen Delivery Method Room Air Oxygen Flow Rate 1 Narrative Exam Narrative: Pleasant 66-year-old female, resting comfortably in bed, no acute distress. Dressing is clean and dry. Bilateral lower extremity: Motor function is grossly intact, sensation is grossly intact to light touch, calves are soft and nontender palpation. Objective Labs Result Diagrams: 09/24/21 05:08 Labs: Laboratory Results - last 24 hr 09/24/21 05:08 Hgb 11.2 L Hct 33.3 L PFSH Medical History Anesthesia complication Anxiety Arthritis Essential hypertension Hypothyroid Macular degeneration of both eyes Migraines Surgical History History of bladder surgery History of hysterectomy Hx of bilateral cataract extraction Hx of fusion of cervical spine (~2014) Hx of laminectomy Hx of sinus surgery Social History household members: spouse Smoking Status: Former smoker alcohol intake: former Assessment & Plan Post-op Postoperative Procedures: Procedures Operation Date: 09/23/21 07:45 Actual Procedure Side Surgeon p L3-4, L4-5, L5-S1 TLIF w. posterior instrumentation-Robot Phyllis Bucio MD Postoperative day: 1 Postoperative status: doing well Postoperative status narrative: Stable status post L3-4, L4-5, L5-S1 TLIF Postoperative plan: routine post-op care Postoperative plan narrative: -mobilize with PT. weightbearing as tolerated front wheel walker. Limit bending, lifting, twisting -continue with current multimodal pain regimen -disposition: Home in 1-2 days. Possibly this evening if she does very well with physical therapy and her pain is well controlled. Quality VTE Deep Vein Thrombosis/Pulmonary Embolism Present on Admission: No
[2021-09-24] MEDS: HYDROMORPHONE 0.5 MG INJ IV ×2 (08:31→15:24)
[2021-09-24] MEDS: MULTIVITAMIN 1 TABLET 1 TAB PO (08:33)
[2021-09-24] MEDS: FISH OIL 1,000 MG CAPSULE 1000 MG PO (08:33)
[2021-09-24] MEDS: DOCUSATE 100 MG CAPSULE PO ×2 (08:33→20:03)
--- NOTE | 2021-09-24 09:25 | PT.IIE ---
Current Diagnoses Spondylolisthesis, lumbosacral region (09/23/21) Spinal stenosis, lumbar region without neurogenic claudication (09/23/21) Surgery Performed Operation Date: 09/23/21 07:45 Actual Procedures p L3-4, L4-5, L5-S1 TLIF w. posterior instrumentation-Robot - Phyllis Bucio MD Medical History (Last Reviewed 09/24/21 @ 07:20 by Florinda Gonzales PA-C) Anesthesia complication Anxiety Arthritis Essential hypertension Hypothyroid Macular degeneration of both eyes Migraines Physical Therapy Inpatient Evaluation/Re-Eval M1 PT/OT-IP Prior Functional Status Start: 09/24/21 11:53 Freq: NEEDED Status: Active Protocol: Document 09/24/21 09:25 AB (Rec: 09/24/21 12:08 AB [email or web address]) Medical Review Prior Functional Status Medical History Reviewed Yes Communication able to make needs known but with confusion Mobility and Gait pt stated that she is independent with all mobilities and ambulation without AD Social History Household Members spouse Living Arrangements House Number of Floors (Floors) Two Floors Number of Stairs To Enter/Railing? 1 step to enter 8 steps L rail to 2nd floor bedroom Home Environment Standard Height Toilet,Walk in Shower Home Equipment Hand Held Shower Additional Social History Comment pt does not have DMEs pt also stated that spouse works until 3 pm and will not be able to be off work to assist her M2 PT-IP Current Condition Start: 09/24/21 11:53 Freq: NEEDED Status: Active Protocol: Document 09/24/21 09:25 AB (Rec: 09/24/21 12:08 AB [email or web address]) Physical Therapy Current Condition Current Condition Evaluation Date 09/24/21 Treatment Diagnosis s/p L3-4, L4-5, L5S1 TLIF; difficulty in walking Onset Date 09/23/21 M3 PT-IP Subjective Start: 09/24/21 11:53 Freq: NEEDED Status: Active Protocol: Document 09/24/21 09:25 AB (Rec: 09/24/21 12:08 AB [email or web address]) Subjective Physical Therapy Visit Type Type Initial Evaluation Visit Start Time 09:25 Visit Stop Time 10:10 Total Visit Minutes 45 Number of PATCH FINISHER Visits 0 Physical Therapy Visit Comments Patient Comments agreeable to do PT Therapy Pain Assessment Pain When Pain Assessed At Rest Pain Present Pain Present Pain Reported Location Bilateral Lower Back Intensity 7 Scale Used Numeric (0 - 10) Pain Management Techniques Distraction,Modification of Treatment,Re-positioning, Timing of Activity with Medications M4 PT-IP Mobility and Gait Start: 09/24/21 11:53 Freq: NEEDED Status: Active Protocol: Document 09/24/21 09:25 AB (Rec: 09/24/21 12:08 AB [email or web address]) PT-Bed Mobility Assessment Rolling Type of Rolling Log Rolling Level of Assist Minimal Assistance Supine to Sit Supine to Sit Minimal Assistance PT-Transfer Assessment Sit to and From Stand Sit to and from Stand Minimal Assistance,1 Person Assistance,Use of Upper Extremities Equipment Transfer Assistive Device Gait Belt,Front Wheeled Walker Orthotic/Prosthetic Devices or Brace: No Transfers Transfer Destination Chair Transfer Technique ambulated Transfer Ability Level of Assist Minimal Assistance,1 Person Assistance,Use of Upper Extremities Comments Mobility Comments educated pt on back precautions and log roll bed mobility. BP ins upine: 110/ 58. completed log roll supine to sit min A and cues. c/o dizziness. BP in sittin /55. pt sat on EOB for a few more minutes and continues to have dizziness. BP: 111/55. pt agreed to ambulated and completed sit to stand min A and cues and ambulated towards the chair min A using FWW ~ 12 ft. pt sat on chair. continues to have dizziness. BP after walkin/53. pt agreed to sit on chair. positioned on chair. call light and table placed within reach. BP checked again: 111/ 56 Gait Assessment Gait Gait Assistance Required: Minimum Assistance Distance (Feet) 12 Able to Maintain Weight Bearing Status Yes During Gait Assistive Devices Assistive Device Gait Belt,Front Wheeled Walker Orthotic/Prosthetic Devices or Brace: No Gait Deviations General Gait Pattern Antalgic,Decreased Stride Length,Decreased Feet Clearance Factors Limiting Gait Function Factors Limiting Gait Function Decreased Activity Tolerance, Decreased Strength,Limited Range of Motion,Pain,Poor Balance,Poor Safety Awareness PT-Balance Assessment Sitting Balance and Reactions Static Sitting Balance Ability Good Dynamic Sitting Balance Ability Good Standing Balance and Reactions Static Standing Balance Ability Fair Dynamic Standing Balance Ability Fair Device Used FWW M5 PT-IP Objective Assessments Start: 09/24/21 11:53 Freq: NEEDED Status: Active Protocol: Document 09/24/21 09:25 AB (Rec: 09/24/21 12:08 AB [email or web address]) Orientation Orientation/Cognition Level of Alertness Alert Orientation Name,Place,Situation Language Function Ability No Deficits Noted Safety Awareness Decreased Safety Awareness Memory Description Short Term Impaired Gross Range of Motion Lower Extremity ROM Assessment Within Functional Limits Strength Lower Extremity Strength Hip 3+/5 Knee 4-/5 Muscle Tone Muscle Tone WNL Yes M6 PT-IP Treatment Start: 09/24/21 11:53 Freq: NEEDED Status: Active Protocol: Document 09/24/21 09:25 AB (Rec: 09/24/21 12:08 AB [email or web address]) Physical Therapy Treatment Education Education Provided Precautions,Weight Bearing Status,Post-Op Packet,Safety M7 PT-IP Assessment and Plan Start: 09/24/21 11:53 Freq: NEEDED Status: Active Protocol: Document 09/24/21 09:25 AB (Rec: 09/24/21 12:08 AB [email or web address]) PT Summary Assessment and Plan Potential Rehabilitation Potential Good Status of Condition at Evaluation Evolving Summary Impairments Pain,ROM,Strength,Balance, Coordination,Sensation,Tone, Cognition,Bed Mobility, Transfers,Gait,Activity Tolerance Assessment Summary pt requiring min A with mobility using FWW but has decrease activity tolerance affecting mobility independence. c/ dizziness limiting mobility. pt also does not have any DME needed for d/c home. informed pt regarding equipment nees and stated that she will inform her spouse. pt's spouse also goes to work and pt is going to be by herself most of the day. Pt needs to be more independent than current level to safely go home. Will continue to assess progress but pt may require SNF rehab at this time. Goals Bed Mobility Goal Independent Transfer Goal Independent,Front Wheeled Walker Gait Goal Independent,Front Wheel Walker Gait Distance 200 Other Goals up/down 1 step using FWW SBA up/down 8 steps L rail ascending SBA Days to Meet Goals 5 Frequency of Treatment Frequency Of Treatment Twice a Day Treatment Plan Physical Therapy Treatment Plan Bed Mobility Training,Transfer Training,Gait Training, Therapeutic Exercise,Balance Retraining,Post Op Education, Discharge Planning,Hot or Cold Pack,Neuromuscular Re-ed, Coordination Retraining,Manual Therapy Precautions Lumbar Precautions Log Roll,No Twisting,Limit Bending,Lifting Restriction of 10 lbs,Gait Belt above Incisional Area Recommendations To Nursing Amount of Assist Needed 1 Person Assist Discharge Recommendations PT Discharge Recommendations Home with 02/02 Assist Available,Home Health,SNF Rehab,Home vs SNF Equipment Needed for Home Before FWW Discharge Transportation Needs at Discharge Private Vehicle,Wheelchair/ Cabulance
--- NOTE | 2021-09-24 09:54 | PC.NURSE ---
Pt rouses to voice. Discussed nee to follow protocal and not twist back, ask for help to log roll. Pt set up for b'fast, pain med given. Pt presently up with PT, gait belt and walker. Walking in the room with PT.
--- NOTE | 2021-09-24 11:15 | OT.IP.EVAL ---
Current Diagnoses Spondylolisthesis, lumbosacral region (09/23/21) Spinal stenosis, lumbar region without neurogenic claudication (09/23/21) Surgery Performed Operation Date: 09/23/21 07:45 Actual Procedures p L3-4, L4-5, L5-S1 TLIF w. posterior instrumentation-Robot - Phyllis Bucio MD Past Medical History (Last Reviewed 09/24/21 @ 07:20 by Florinda Gonzales PA-C) Anesthesia complication Anxiety Arthritis Essential hypertension History of bladder surgery History of hysterectomy Hx of bilateral cataract extraction Hx of fusion of cervical spine (~2014) Hx of laminectomy Hx of sinus surgery Hypothyroid Macular degeneration of both eyes Migraines Surgical History (Last Reviewed 09/24/21 @ 07:20 by Florinda Gonzales PA-C) History of bladder surgery History of hysterectomy Hx of bilateral cataract extraction Hx of fusion of cervical spine (~2014) Hx of laminectomy Hx of sinus surgery Occupational Therapy Inpatient Evaluation/Re-Eval M1 PT/OT-IP Prior Functional Status Start: 09/24/21 11:53 Freq: NEEDED Status: Active Protocol: Document 09/24/21 11:15 [facility] (Rec: 09/24/21 14:16 [facility] [id number]) Medical Review Prior Functional Status Medical History Reviewed Yes Communication able to make needs known but with confusion Mobility and Gait pt stated that she is independent with all mobilities and ambulation without AD Activities of Daily Living and IADL's Pt states due to her pain unable to do IADl needs and only could stand for 15 minutes at a time. Social History Household Members spouse Living Arrangements House Number of Floors (Floors) Two Floors Number of Stairs To Enter/Railing? 1 step to enter 8 steps L rail to 2nd floor bedroom Home Environment Standard Height Toilet,Walk in Shower Home Equipment Hand Held Shower Additional Social History Comment pt does not have DMEs pt also stated that spouse works until 3 pm and will not be able to be off work to assist her M2 OT-IP Current Condition Start: 09/24/21 14:00 Freq: Status: Active Protocol: Document 09/24/21 11:15 [facility] (Rec: 09/24/21 14:16 [facility] [id number]) Occupational Therapy Current Condition Current Condition Evaluation Date 09/24/21 Treatment Diagnosis S/p L3-4, L4-5, L5-S1 TLIF Diagnosis Onset Date 09/23/21 Post Operative Precautions Lumbar Precautions Log Roll,No Twisting,Limit Bending,Lifting Restriction of 10 lbs,Gait Belt above Incisional Area M3 OT- IP Subjective and Pain Start: 09/24/21 14:00 Freq: Status: Active Protocol: Document 09/24/21 11:15 [facility] (Rec: 09/24/21 14:16 [facility] [id number]) OT- Subjective Occupational Therapy Visit Type Type Initial Evaluation Visit Start Time 10:40 Visit Stop Time 11:15 Total Visit Minutes 35 Occupational Therapy Visit Comments Patient Comments Pt agreed to get up for OT eval. OT Pain Assessment Pain When Pain Assessed During Mobility Pain Present Pain Present Pain Reported Location Bilateral Lower Back Intensity 2 Scale Used Numeric (0 - 10) M4 OT- IP ADL's Start: 09/24/21 14:00 Freq: Status: Active Protocol: Document 09/24/21 11:15 [facility] (Rec: 09/24/21 14:16 [facility] [id number]) OT [id number] Comments OT Self-Feeding Comments NOt at meal time. OT ADL-Grooming General Evaluation Grooming Ability Standby Assistance Areas Needing Assistance Retrieving/Set-up of Grooming Items OT ADL-Oral Care General Eval Oral Care Ability Standby Assistance Areas of Assistance Retrieving/Set-Up of Items Comments Oral Care Comments Educated best to hinge at her hips to spit in to the sink or spit into a cup to best follow her back precautions. OT ADL-Dressing General Eval Lower Body Dressing Ability Standby Assistance,Maximum Assistance Comments OT Dressing Comments Able to show pt use of health manager and sock aid to help increased her independence for LB dressing needs. At this time pt struggles too much to be able to cross her legs to do LB dressing needs. OT ADL-Toileting Comments OT Toileting Comments Pt not having to go. Able to simulate leaning to the side to reach to wipe and pt able to reach appropriately. Educated on use of wet- ones can also be helpful. OT ADL-Bathing Comments OT Bathing Comments Not performed. Pt would benefit from a shower chair. M5 OT- IP IADL's Start: 09/24/21 14:00 Freq: Status: Active Protocol: Document 09/24/21 11:15 [facility] (Rec: 09/24/21 14:16 [facility] [id number]) OT-Instrumental Activities of Daily Living Home Safety Awareness Home Safety Comments Pt a bit confused and groogy from pain medications and would benefit from 24/7 assist at home at this time for her safety and assist for needs. M6 OT- IP Functional Cognition Start: 09/24/21 14:00 Freq: Status: Active Protocol: Document 09/24/21 11:15 [facility] (Rec: 09/24/21 14:16 [facility] [id number]) Cognitive Factors Limiting Selfcare Function Cognitive Ability Level of Alertness Alert,Confusional State Patient Orientation Name,Place,Situation Attention Span Ability Capable of Focused Attention, Capable of Sustained Attention Ability to Follow Commands Able to Follow One Step Commands with Increased Time, Able to Follow One Step Commands with Repetition Safety Awareness Decreased Ability to Apply Precautions,Underestimates Need for Assistance Cognitive Comments Cognitive Assessment Comments Pt a bit groggy and needing concrete simple commands to follow and cues to incorporate her back precautions, vc for safety with FWW and hand placement when coming to stand or sitting down. OT- Vision and Hearing OT- Hearing Assessment OT- Hearing Assessment WFL OT- Vision Assessment Vision History Macular Degeneration Visual Acuity Glasses For Reading M7 OT- IP Mobility and Balance Start: 09/24/21 14:00 Freq: Status: Active Protocol: Document 09/24/21 11:15 [facility] (Rec: 09/24/21 14:16 [facility] [id number]) OT-Transfer Assessment Sit to and From Stand Sit to and from Stand Minimal Assistance Transfers Transfer Ability Minimal Assistance Technique Transfer Destination Chair Comments Mobility Comments Pt CORY to stand and CORY with FWW for balance and safety cues. OT- Balance Assessment Sitting Balance and Reactions Static Sitting Balance Ability Good Dynamic Sitting Balance Ability Good Standing Balance and Reactions Static Standing Balance Ability Fair M8 OT- IP Objective Assessments Start: 09/24/21 14:00 Freq: Status: Active Protocol: Document 09/24/21 11:15 [facility] (Rec: 09/24/21 14:16 [facility] [id number]) OT-Muscle Tone Assessment Muscle Tone WNL Yes M9 OT- IP Assessment and Plan Start: 09/24/21 14:00 Freq: Status: Active Protocol: Document 09/24/21 11:15 [facility] (Rec: 09/24/21 14:16 [facility] [id number]) OT Summary Assessment and Plan Potential Rehabilitation Potential Good Analytic Complexity at Evaluation Low Summary OT Impairments Pain,Balance,Functional Cognition,Functional Mobility, Grooming,Dressing,Toileting, Bathing,Toilet Transfers, Shower Transfers,Activity Tolerance Progress Towards Goals Slow Progress due to Pain,Slow Progress due to Activity Tolerance,Slow Progress due to Cognition Assessment Summary Pt low complexity and main barriers are steps, groggy , and needing assist for safety cues and to recall her back precautions. Pt would benefit from 24/7 assist at home, however pt insists that her works and now home from 5AM to 3PM. Otherwise pt not safe to go home at this time and may need short skilled rehab. Goals Self-Feeding Goal Independent Grooming Goal Independent Dressing Goal Independent Toileting Goal Independent Bathing Goal Independent Toilet Transfer Goal Independent Shower Transfer Goal Independent Days to Meet Goals 10 Frequency of Treatment Frequency Of Treatment Once a Day Treatment Plan OT Treatment Plan ADL Training,Functional Cognition Training,Functional Mobility,Patient/Family Education,Discharge Planning Other Treatment Recommendations and Next Shower Treatment Focus Discharge Recommendations OT Discharge Recommendations Home with 24/7 Assist Available,Home Health,SNF Rehab,Home vs SNF Home Equipment Needs FWW, shower chair, hand held shower spray Transportation Needs at Discharge Private Vehicle,Wheelchair/ Cabulance
--- NOTE | 2021-09-24 13:20 | PT.IPTN ---
Current Diagnoses Spondylolisthesis, lumbosacral region (09/24/21) Spinal stenosis, lumbar region without neurogenic claudication (09/24/21) Surgery Performed Operation Date: 09/23/21 07:45 Actual Procedures p L3-4, L4-5, L5-S1 TLIF w. posterior instrumentation-Robot - Phyllis Bucio MD Physical Therapy Treatment Note M2 PT-IP Current Condition Start: 09/24/21 11:53 Freq: NEEDED Status: Active Protocol: Document 09/24/21 09:25 AB (Rec: 09/24/21 12:08 AB [email or web address]) Physical Therapy Current Condition Current Condition Evaluation Date 09/24/21 Treatment Diagnosis s/p L3-4, L4-5, L5S1 TLIF; difficulty in walking Onset Date 09/23/21 M3 PT-IP Subjective Start: 09/24/21 11:53 Freq: NEEDED Status: Active Protocol: Document 09/24/21 13:20 AB (Rec: 09/24/21 15:46 AB [id number]) Subjective Physical Therapy Visit Type Type Treatment Note Visit Start Time 13:20 Visit Stop Time 13:50 Total Visit Minutes 30 Number of STEWARD DISHWASHER Visits 0 Physical Therapy Visit Comments Patient Comments agreeable to do PT Therapy Pain Assessment Pain When Pain Assessed At Rest Pain Present Pain Present Pain Reported Location Bilateral Lower Back Intensity 6 Scale Used Numeric (0 - 10) Pain Management Techniques Distraction,Modification of Treatment,Re-positioning, Timing of Activity with Medications M4 PT-IP Mobility and Gait Start: 09/24/21 11:53 Freq: NEEDED Status: Active Protocol: Document 09/24/21 13:20 AB (Rec: 09/24/21 15:46 AB [email or web address]) PT-Bed Mobility Assessment Rolling Type of Rolling Log Rolling Level of Assist Standby Assistance Supine to Sit Supine to Sit Minimal Assistance Sit to Supine Sit to Supine Minimal Assistance PT-Transfer Assessment Sit to and From Stand Sit to and from Stand Minimal Assistance,1 Person Assistance,Use of Upper Extremities Equipment Transfer Assistive Device Gait Belt,Front Wheeled Walker Orthotic/Prosthetic Devices or Brace: No Comments Mobility Comments pt supine in bed and agreed to do PT. completed log roll supine to sit min A and cues for techniques. Pt requires cues for all mobilities for safety and pt tends to forget her precautions. completed sit to stand min A and ambulated in room using FWW ~ 75 ft CGA to min A. pt with increase LLE dragging gait towards ends of ambulation and cued to increase elevation. pt stated that L anterior thigh is numb . pt requested to go back to bed. completed sit to supine min A and cues for techniques. positioned pt in bed. call light and table placed within reach. Gait Assessment Gait Gait Assistance Required: Contact Guard Assist,Minimum Assistance Distance (Feet) 75 Able to Maintain Weight Bearing Status Yes During Gait Assistive Devices Assistive Device Gait Belt,Front Wheeled Walker Orthotic/Prosthetic Devices or Brace: No Gait Deviations General Gait Pattern Antalgic,Decreased Stride Length,Decreased Feet Clearance Factors Limiting Gait Function Factors Limiting Gait Function Decreased Activity Tolerance, Decreased Sensation,Decreased Strength,Difficulty Following Directions,Limited Range of Motion,Pain,Poor Balance,Poor Safety Awareness M5 PT-IP Objective Assessments Start: 09/24/21 11:53 Freq: NEEDED Status: Active Protocol: Document 09/24/21 09:25 AB (Rec: 09/24/21 12:08 AB [email or web address]) Orientation Orientation/Cognition Level of Alertness Alert Orientation Name,Place,Situation Language Function Ability No Deficits Noted Safety Awareness Decreased Safety Awareness Memory Description Short Term Impaired Gross Range of Motion Lower Extremity ROM Assessment Within Functional Limits Strength Lower Extremity Strength Hip 3+/5 Knee 4-/5 Muscle Tone Muscle Tone WNL Yes M6 PT-IP Treatment Start: 09/24/21 11:53 Freq: NEEDED Status: Active Protocol: Document 09/24/21 13:20 AB (Rec: 09/24/21 15:46 AB [email or web address]) Physical Therapy Treatment Education Education Provided Precautions,Safety M7 PT-IP Assessment and Plan Start: 09/24/21 11:53 Freq: NEEDED Status: Active Protocol: Document 09/24/21 13:20 AB (Rec: 09/24/21 15:46 AB [email or web address]) PT Summary Assessment and Plan Potential Rehabilitation Potential Good Summary Impairments Pain,ROM,Strength,Balance, Coordination,Sensation,Tone, Cognition,Bed Mobility, Transfers,Gait,Activity Tolerance Progress Towards Goals Slow Progress due to Pain,Slow Progress due to Medical Issues,Slow Progress due to Activity Tolerance Assessment Summary pt requiring min A with mobility using FWW and requires cues for all tasks for adhering to back precaution and for safety. Informed pt regarding assistance need at home. asked pt if spouse will be able to come in for caregiver training and stated that he can come in after 3 pm but spouse works and cannot be with pt all the time and spouse cannot take days off. informed pt regarding assistance needed for safe d/c . will continue to assess progress. Goals Bed Mobility Goal Independent Transfer Goal Independent,Front Wheeled Walker Gait Goal Independent,Front Wheel Walker Gait Distance 200 Other Goals up/down 1 step using FWW SBA up/down 8 steps L rail ascending SBA Days to Meet Goals 5 Frequency of Treatment Frequency Of Treatment Twice a Day Treatment Plan Physical Therapy Treatment Plan Bed Mobility Training,Transfer Training,Gait Training, Therapeutic Exercise,Balance Retraining,Post Op Education, Discharge Planning,Hot or Cold Pack,Neuromuscular Re-ed, Coordination Retraining,Manual Therapy Precautions Lumbar Precautions Log Roll,No Twisting,Limit Bending,Lifting Restriction of 10 lbs,Gait Belt above Incisional Area Recommendations To Nursing Amount of Assist Needed 1 Person Assist Discharge Recommendations PT Discharge Recommendations Home with / Assist Available,Home Health,SNF Rehab,Home vs SNF Equipment Needed for Home Before FWW Discharge Transportation Needs at Discharge Private Vehicle,Wheelchair/ Cabulance
--- NOTE | 2021-09-24 15:05 | CM.DANOTE ---
Patient is a 66 yo female who was admitted on 09/23/21 for Lumbar Surg. Pt has REG FileThis for insurance and her PCP is Roseann Shaffer. EMR was reviewed. Per Ortho MD, pt tolerated procedure well but some pain management issues. Per PT/OT, recommending HH vs SNF pending progress. SW met bedside with pt and explained role and she confirms she lives in [facility] with her spouse and is independent at baseline. Pt's spouse works during the week and pt will be home alone for most of the day. Pt denies any hx of HH or SNF. SW discussed SNF and pt declines going to a facility and states I want to go home and I can figure out how to safely be home. SW discussed HH services and frequency and pt confirms she would be agreeable to HH and SW provided HH Choice list and no preference. Pt now falling asleep and cannot keep her eyes open and agreeable with SW making [facility] referral based on Vendor Calendar. SW called [facility] and discussed pt status and faxed facesheet and H&P so they can run pt's insurance to determine if any out of pocket expense and coverage for HH. F2F will be needed if pt has coverage for HH. Plan: SW to follow for [facility] review and coverage of insurance for HH and further PT/OT to confirm plan of home with HH and spouse. MICHELLE Dickens Discharge Planning/Care Management CM Discharge Assessment Start: 09/24/21 15:03 Freq: Status: Active Protocol: Document 09/24/21 15:04 BF (Rec: 09/24/21 15:05 [id number]) Discharge Planning Assessment Assigned Computer Analyst MICHELLE Alanis DPOA/Assigned Designee Name spouse Fabiano Advance Directives? No Advance Directives on File No History Provided By Patient,Medical Record Has Patient been admitted in last 30 No days? Prior Living Arrangements House Household Members spouse Type of transporation used prior to Drives own vehicle admit Independent with ADL's Yes Is patient alert and oriented? Yes Caregiver for Another No Patient/Family Preference Home with Home Health Barriers to Discharge No Discharge Plan Home with Home Health Community Services Physical Therapy Transportation Arrangement spouse Referrals Initiated Home Health Additional Comment [facility] reviewing insurance Medicare Choice List Provided Yes SNF/HH Preference no pref Whiteboard Updated in Patient Room with Yes name and ext. # of Computer Analyst Review Status In Process Please Provide Date Initial DC 09/24/21 Assessment Was Performed Next Review Type Continued Stay Review Pre-Anesthesia Assessment Start: 09/16/21 09:43 Freq: Status: Active Protocol: Document 09/16/21 09:43 [facility] (Rec: 09/16/21 10:42 CAB [id number]) Pre-Anesthesia Assessment Patient Information Reviewed Via Phone Assessment Assessment Completed With Patient Diagnostic Results BMP/CMP,CBC Comment Outside labs only scanned, COVID screen @ [facility] 09/20/21 Primary Care Provider Celeste Castillo Seen Specialist in Last 12 Months Yes Specialist Seen Orthopedist,Other Comment Psychiatry Primary Language Kosovan Spring Coiler Required No Height 167.64 cm Weight 54.431 kg Body Mass Index (BMI) 19.3 Hearing Ability Normal Visual Assist Magnifying Glass Barriers to Learning Cognitive impairment,Emotional Hx Anesthesia Reactions Yes: Severe migraine, PONV. I've woken up during surgeries before Hx Family Anesthesia Reaction No Hx Malignant Hyperthermia No Hx Blood Transfusions No Anesthesia Review Requested No alcohol intake former Smoking Status Former smoker how long ago did patient quit smoking Quit age 21, restarted age 39, quit again a year later Substance Use Type does not use Pain Present Pain Reported Musculoskeletal Symptoms Back Pain,Joint Pain,Radiating Pain into Limb History of Falling (Recent or History of No ) Patient is completely paralyzed or No completely immobile Mental Status Oriented to own ability Is patient on oxygen? No Does patient have OROZCO/SOB No Hx Sleep Apnea No Currently Taking a Beta Bridgette Yes: Propranolol Can You Climb a Flight of Stairs Without Yes SOB Hx Chest Pain No Hx SOB No Hx Syncope or Dizziness No Anti-Coagulant Therapy No Has a Household Cook No Cardiac Testing No Hx Pacemaker/ICD No Pacemaker Rep Required? No Cardiac Clearance Received Not Applicable Diet Type At Home Regular dysphagia No Urinary Catheter Present No Hx Urinary Self Catheterization Yes: r/t complications from bladder surgery Diabetes No Patient No Lactating No Presence of External or Internal Medical Yes: Urinary cath equipment, Devices bilat eye IOL, cervical hardware Have you had any close contact with No someone diagnosed with COVID-19? Received a COVID vaccine? Yes: Does not plan to get booster Received all doses? No Marital Status Lives With spouse Prior Living Arrangements House Number of Floors (Floors) Two Floors Support System Spouse Does the Patient Have Assistance After Yes: No one will home during Surgery the day Patient Discharge Plan Description Return Home Comment Pt advised 1-2 night length of stay per surgeon Feels Safe in Current Environment Yes Been Physically Hurt or Threatened By a No Person in Current Environment Do you have thoughts of harming yourself None or others? Are you currently considering suicide? No Do you have a plan to hurt yourself or No Plan others? Comment Hx of suicidal ideation, no current thoughts Do You Have Any Spiritual Beliefs That No May Affect Your HC Choices? Do You Have Any Cultural Practices That No May Affect Your HC Choices? Comment Sikhism Who Can We Speak to About Patient's Care Family, friends Identifying Code for Release of Patient Declines to issue Information Health Care Proxy/Next of Kin Fabiano () Health Care Proxy Emergency Contact Name Fabiano () Emergency Contact Advance Directives? No Power of Boiler Plant Operator Yes Power of Boiler Plant Operator Name Fabiano () Power of Boiler Plant Operator
[2021-09-24] MEDS: lamoTRIgine 100 MG TABLET PO (20:03)
[2021-09-24] MEDS: SENNOSIDES 8.6 MG TABLET 17.2 MG PO (20:03)
[2021-09-24] MEDS: GABAPENTIN 300 MG CAPSULE 900 MG PO (20:03)
[2021-09-24] MEDS: CITALOPRAM 10 MG TABLET PO (20:03)
[2021-09-24] MEDS: AMLODIPINE 5 MG TABLET PO (20:03)
[2021-09-24] MEDS: PROPRANOLOL ER 60 MG CAPSULE PO (20:04)
[2021-09-24] MEDS: hydrOXYzine pamoate 25 MG CAPSULE PO (23:45)
[2021-09-24] MEDS: ACETAMINOPHEN 325 MG TABLET 650 MG PO (23:45)
[2021-09-25] VITALS (10 sets, daily range): BP systolic 116–138; BP diastolic 52–68; PULSE 62–102; RESP 18–22; TEMP 36.4–38.7; O2SAT 90–100
[2021-09-25] MEDS: OXYCODONE IR 10 MG TABLET PO ×4 (03:58→20:12)
--- NOTE | 2021-09-25 08:06 | PC.NURSE ---
leave rodriguez in until patient dc. pt self caths at home
[2021-09-25] MEDS: FISH OIL 1,000 MG CAPSULE 1000 MG PO (08:17)
[2021-09-25] MEDS: MULTIVITAMIN 1 TABLET 1 TAB PO (08:17)
[2021-09-25] MEDS: DOCUSATE 100 MG CAPSULE PO ×2 (08:17→20:11)
[2021-09-25] MEDS: PROPRANOLOL ER 60 MG CAPSULE PO ×2 (08:18→21:20)
--- NOTE | 2021-09-25 08:55 | PM.PNPO.1 ---
Subjective Subjective Date Patient Seen: 09/25/21 Time Patient Seen: 08:55 Interval history: Lying in bed, complaining of back pain that exceeds her preoperative expectations. Denies leg pain, but does complain of left anterior thigh numbness. Needs help at home as her works FT, working w/ CM on . Exam Vital Signs (past 8 hours): - 09/25/21 04:00 09/25/21 07:30 Temperature 99.6 F 99.3 F Pulse Rate 92 H 82 Respiratory Rate 19 20 Blood Pressure 130/67 116/64 Pulse Oximetry 90 L 93 Oxygen Delivery Method Room Air Oxygen Flow Rate 2 Narrative Exam Narrative: 5/5 strength in hip flexors, quadriceps, hamstrings, DF, PF, EHL bilaterally. Sensation to light touch intact throughout BLE. Calves soft, compressible, nontender and without palpable cords or masses. Const General: cooperative and healthy appearing Orientation: alert, awake and oriented x3 Objective Labs Result Diagrams: 09/24/21 05:08 [facility] Medical History Anesthesia complication Anxiety Arthritis Essential hypertension Hypothyroid Macular degeneration of both eyes Migraines Surgical History History of bladder surgery History of hysterectomy Hx of bilateral cataract extraction Hx of fusion of cervical spine (~2014) Hx of laminectomy Hx of sinus surgery Social History household members: spouse Smoking Status: Former smoker alcohol intake: former Assessment & Plan Post-op Assessment and plan (1) S/P lumbar fusion: Assessment and Plan narrative: 1) Multimodal pain control 2) Continue Schroeder catheter; will discontinue catheter just prior to d/c for pt convenience. 3) Continue work w/ PT 4) Plan to d/c home tomorrow w/ HH. (2) Acute postoperative anemia due to expected blood loss: Assessment and Plan narrative: Asymptomatic, no intervention needed at this time. Postoperative Procedures: Procedures Operation Date: 09/23/21 07:45 Actual Procedure Side Surgeon p L3-4, L4-5, L5-S1 TLIF w. posterior instrumentation-Robot Phyllis Bucio MD Postoperative day: 2 Quality VTE Deep Vein Thrombosis/Pulmonary Embolism Present on Admission: No
--- NOTE | 2021-09-25 09:18 | P.DS_ITS ---
History of Present Illness History of Present Illness Date Patient Seen: 09/26/21 Time Patient Seen: 07:37 Chief complaint: OPB Narrative: Operative Date/Time/Diagnoses Date of procedure: 09/23/21 Time of procedure: 07:45 Pre-op diagnosis: 1. L3-4, L4-5, L5-S1 spondylolisthesis 2. L3-4, L4-5, L5-S1 spinal stenosis Post-op diagnosis: same Procedure & Clinicians Procedure: 1. L3-4, L4-5, L5-S1 Postero-lateral and posterior interbody fusion 2. L3-4, L4-5, L5-S1 interbody cage placement. 3. L3-4, L4-5, L5-S1 decompressive laminectomy with bilateral facetecomies 4. L3-4, L4-5, L5-S1 Posterior segmental instrumentation 5. [place] of bone marrow from iliac crest 6. Utilization of microsurgical technique and operating microscope 7. Utilization of robotic navigation Same procedure as scheduled: Yes Indications: Patient has been having chronic back pain and worsening lumbar radiculopathy. Patient failed multiple conservative management with worsening pain weakness and numbness in her lower extremity.? Patient has been having difficulty performing activity of daily living.? After discussing risks benefits of treatment options, patient elected proceed with surgery. Surgeon: Phyllis Bucio Manager Android: Nohemi Monk Click Yes if Unassisted: No Anesthesia Type: General Operative Notes Closure Type: primary Specimen(s): none sent Prosthetic devices, grafts, tissues, transplants, or devices: Globus CREO MIS screws, Rise cages Applied: catheter Estimated Blood Loss (mL): 100 Blood products transfused: none Discharge Providers Provider Date of admission: 09/23/2021 Discharge Date: 09/26/21 Primary care physician: YURIY Bartlett Consults: 09/23/21 14:47 Consult to Occupational Therapy Evaluate & Treat Comment: Physician Instructions: Evaluate and treat Consult to Physical Therapy Evaluate & Treat Comment: Physician Instructions: Evaluate and Treat Discharge provider: Nohemi Monk PA-C Summary Hospital Course Discharge Diagnosis: s/p lumbar fusion Hospital Course: Ms Craig's hospital course was unremarkable. She was evaluated by PT throughout her stay and they felt she needed assistance and would be best served by home health since her works. On POD# 3 she was feeling well and wanted to go home. Her pain was well-controlled with oral medication and she was eating without difficulty. Patient self-catheterizes at home; rodriguez catheter was removed just prior to discharge. Exam Vital Signs (past 8 hours): - 09/25/21 04:00 09/25/21 07:30 Temperature 99.6 F 99.3 F Pulse Rate 92 H 82 Respiratory Rate 19 20 Blood Pressure 130/67 116/64 Pulse Oximetry 90 L 93 Oxygen Delivery Method Room Air Oxygen Flow Rate 2 Narrative Exam Narrative: 5/5 strength in hip flexors, quadriceps, hamstrings, DF, PF, EHL bilaterally. Sensation to light touch intact throughout BLE. Calves soft, compressible, nontender and without palpable cords or masses. Const General: cooperative and healthy appearing Orientation: alert, awake and oriented x3 Objective Labs Result Diagrams: 09/24/21 05:08 PFSH Medical History Anesthesia complication Anxiety Arthritis Essential hypertension Hypothyroid Macular degeneration of both eyes Migraines Surgical History History of bladder surgery History of hysterectomy Hx of bilateral cataract extraction Hx of fusion of cervical spine (~2014) Hx of laminectomy Hx of sinus surgery Social History household members: spouse Smoking Status: Former smoker alcohol intake: former Discharge Assessment & Plan Assessment and Plan Assessment: POD# 3 s/p L3-4, L4-5, L5-S1 transforaminal lumbar interbody fusion with po sterior instrumentation Plan of Treatment: Discharge w/ HH, multimodal pain control. Discharge Plan Discharge orders & Medications Discharge Orders: Discharge (Order); Ordered 09/26/21 Ordered By: Florinda Gonzales Prescriptions: New acetaminophen 500 mg capsule 500 mg PO Q4H MDD Max 3000 mg per day PRN (Reason: Pain, Mild (1-3)) Qty: 90 0RF docusate sodium 100 mg Capsule 100 mg PO BID PRN (Reason: constipation) Qty: 30 0RF hydroxyzine pamoate 25 mg Capsule 25 mg PO Q4HR PRN (Reason: spams/pain/nausea) Qty: 30 0RF oxycodone 10 mg Tablet 10 mg PO Q3HR PRN (Reason: Pain, Severe (7-10)) Qty: 42 0RF Continued lamotrigine 200 mg tablet See Rx Instructions .ROUTE .COMPLEX Qty: 30 2RF Dose Instruction: TAKE ONE TABLET BY MOUTH AT BEDTIME Rx Instructions: TAKE ONE TABLET BY MOUTH AT BEDTIME diazepam 5 mg tablet 10 mg PO BEDTIME PRN (Reason: sleep/anxiety) Qty: 75 1RF Rx Instructions: OK To use 5mg dose as needed for severe anxiety with daytime activities, in addition to 10mg QHS scheduled gabapentin 600 mg tablet 900 mg PO BEDTIME Qty: 45 5RF propranolol 60 mg capsule,extended release 24 hr 60 mg PO BID 0RF multivitamin Capsule 1 cap PO DAILY 0RF omega-3 fatty acids [Fish Oil Concentrate] 1,000 mg capsule 1,000 mg PO DAILY 0RF sumatriptan succinate [Imitrex] 100 mg tablet 100 mg PO DAILY PRN (Reason: Migraines) 0RF amlodipine 5 mg Tablet 5 mg PO BEDTIME 0RF meloxicam 15 mg Tablet 15 mg PO DAILY 0RF citalopram 10 mg tablet 10 mg PO BEDTIME 0RF Follow up/Referrals: Roseann Shaffer ARNP [Primary Care Provider] - Phyllis Bucio MD [Physician] - As previously scheduled (Follow up w/ Dr Bucio on 10/10/2021 @ 11:00 at [facility] office in [place].) Diet/Activity/Treatments Diet: Diet as Tolerated Activity: Walk frequently. No deep bending (more than 90 degrees) or twisting at the waist. No lifting > 20 pounds. Cold/Heat Therapy: Ice and heat to back as needed for pain control. Skin/Wound/Dressing Care Report to your healthcare provider any signs of infection, such as:: chills, fever, night sweats, increased pain, unusual drainage and unusual redness Dressing: May shower; keep incisions as dry as possible. Change dressings if they become wet inside. No bathing or otherwise soaking incisions. Do not apply any creams, ointments, or lotions to incisions. Visit Report/Discharge Packet Instructions: DI for Prescription Opioid Use, DI for Transforaminal Lumbar Interbody Fusion Stand Alone Forms: Surgery Discharge Discharge Data Primary Care Provider: Roseann Shaffer Quality VTE Deep Vein Thrombosis/Pulmonary Embolism Present on Admission: No
--- NOTE | 2021-09-25 09:34 | OT.IP.TRT ---
Current Diagnoses Acute posthemorrhagic anemia (09/24/21) Spondylolisthesis, lumbosacral region (09/24/21) Spinal stenosis, lumbar region without neurogenic claudication (09/24/21) Arthrodesis status (09/24/21) Surgery Performed Operation Date: 09/23/21 07:45 Actual Procedures p L3-4, L4-5, L5-S1 TLIF w. posterior instrumentation-Robot - Phyllis Bucio MD Occupational Therapy Treatment Note M2 OT-IP Current Condition Start: 09/24/21 14:00 Freq: Status: Active Protocol: Document 09/24/21 11:15 [facility] (Rec: 09/24/21 14:16 [facility] [id number]) Occupational Therapy Current Condition Current Condition Evaluation Date 09/24/21 Treatment Diagnosis S/p L3-4, L4-5, L5-S1 TLIF Diagnosis Onset Date 09/23/21 Post Operative Precautions Lumbar Precautions Log Roll,No Twisting,Limit Bending,Lifting Restriction of 10 lbs,Gait Belt above Incisional Area M3 OT- IP Subjective and Pain Start: 09/24/21 14:00 Freq: Status: Active Protocol: Document 09/25/21 09:22 [facility] (Rec: 09/25/21 10:31 [facility] [id number]) OT- Subjective Occupational Therapy Visit Type Type Treatment Note Visit Start Time 09:22 Visit Stop Time 09:34 Total Visit Minutes 12 Occupational Therapy Visit Comments Patient Comments Pt agreed to work on bed mobility needs. Pt states her not able to come for caregiver training as has a doctor's appointment after work today. Patient/Caregiver Goals TO go home. OT Pain Assessment Pain When Pain Assessed During Mobility Pain Present Pain Present Pain Reported M6 OT- IP Functional Cognition Start: 09/24/21 14:00 Freq: Status: Active Protocol: Document 09/25/21 09:22 [facility] (Rec: 09/25/21 10:31 [facility] [id number]) Cognitive Factors Limiting Selfcare Function Cognitive Ability Level of Alertness Alert Patient Orientation Name,Place,Situation Attention Span Ability Capable of Focused Attention, Capable of Sustained Attention Ability to Follow Commands Able to Follow One Step Commands with Increased Time, Able to Follow One Step Commands with Repetition Safety Awareness Underestimates Need for Assistance Cognitive Comments Cognitive Assessment Comments Pt still needing cues to incorporate her back precautions during bed mobility and needing step by step instructions to follow. Pt forgetting to bend her right knee up so able to push on the bed to assist better to roll to the left. In addition pt tends to try to raise her trunk up without getting her legs off the bed first and needing cues to 75% of the time to get her legs off the bed . Pt would benefit from continued practice. When coming to stand, pt needing CGA as pt legs tends to buckle and needing cues to straighten her legs all the way up. CGA with FWW to take a few side steps to the head of the bed. M7 OT- IP Mobility and Balance Start: 09/24/21 14:00 Freq: Status: Active Protocol: Document 09/25/21 09:22 [facility] (Rec: 09/25/21 10:31 [facility] [id number]) OT- Bed Mobility Assessment Rolling Type of Rolling Roll to Left Level of Assistance Standby Assistance Supine to Sit Supine to Sit Assist Standby Assistance Sit to Supine Sit to Supine Assist Standby Assistance OT- Balance Assessment Sitting Balance and Reactions Static Sitting Balance Ability Good Dynamic Sitting Balance Ability Good Standing Balance and Reactions Static Standing Balance Ability Fair M8 OT- IP Objective Assessments Start: 09/24/21 14:00 Freq: Status: Active Protocol: Document 09/24/21 11:15 [facility] (Rec: 09/24/21 14:16 [facility] [id number]) OT-Muscle Tone Assessment Muscle Tone WNL Yes M9 OT- IP Assessment and Plan Start: 09/24/21 14:00 Freq: Status: Active Protocol: Document 09/25/21 09:22 [facility] (Rec: 09/25/21 10:31 [facility] [id number]) OT Summary Assessment and Plan Potential Rehabilitation Potential Good Analytic Complexity at Evaluation Low Summary OT Impairments Pain,Balance,Functional Cognition,Functional Mobility, Grooming,Dressing,Toileting, Bathing,Toilet Transfers, Shower Transfers,Activity Tolerance Progress Towards Goals Slow Progress due to Pain,Slow Progress due to Medical Issues,Slow Progress due to Activity Tolerance Assessment Summary Pt still needing reminders for her back precautions and would benefit from caregiver training with her . However he works and has a doctor's appointment after work and will not be here for caregiver training today. Pt states her was able to get a shower chair and 2 walkers for home use. Pt not wanting to go to skilled rehab and will still benefit from / assist at home and home health. Goals Self-Feeding Goal Independent Grooming Goal Independent Dressing Goal Independent Toileting Goal Independent Bathing Goal Independent Toilet Transfer Goal Independent Shower Transfer Goal Independent Days to Meet Goals 10 Frequency of Treatment Frequency Of Treatment Once a Day Treatment Plan OT Treatment Plan ADL Training,Functional Cognition Training,Functional Mobility,Patient/Family Education,Discharge Planning Other Treatment Recommendations and Next Shower Treatment Focus Discharge Recommendations OT Discharge Recommendations Home with 24/7 Assist Available,Home Health,SNF Rehab,Home vs SNF Home Equipment Needs hand held shower spray Transportation Needs at Discharge Private Vehicle
--- NOTE | 2021-09-25 11:29 | PT.IPTN ---
Current Diagnoses Acute posthemorrhagic anemia (09/24/21) Spondylolisthesis, lumbosacral region (09/24/21) Spinal stenosis, lumbar region without neurogenic claudication (09/24/21) Arthrodesis status (09/24/21) Surgery Performed Operation Date: 09/23/21 07:45 Actual Procedures p L3-4, L4-5, L5-S1 TLIF w. posterior instrumentation-Robot - Phyllis Bucio MD Physical Therapy Treatment Note M2 PT-IP Current Condition Start: 09/24/21 11:53 Freq: NEEDED Status: Active Protocol: Document 09/25/21 10:31 SP (Rec: 09/25/21 13:31 SP [id number]) Physical Therapy Current Condition Current Condition Evaluation Date 09/24/21 Treatment Diagnosis s/p L3-4, L4-5, L5S1 TLIF; difficulty in walking Onset Date 09/23/21 M3 PT-IP Subjective Start: 09/24/21 11:53 Freq: NEEDED Status: Active Protocol: Document 09/25/21 10:31 SP (Rec: 09/25/21 13:31 SP [id number]) Subjective Physical Therapy Visit Type Type Treatment Note Visit Start Time 10:31 Visit Stop Time 11:29 Total Visit Minutes 58 Number of AUTOMATIC SERGING MACHINE OPERATOR Visits 1 Physical Therapy Visit Comments Patient Comments agreeable to do PT Patient Goals going home with assistance of others, working, can't help. Therapy Pain Assessment Pain When Pain Assessed During Mobility Pain Present Pain Present Pain Reported Location Bilateral Lower Back Intensity 4 Scale Used Numeric (0 - 10) Description With Movement Pain Behaviors Facial Grimacing Pain Management Techniques Distraction,Re-positioning, Timing of Activity with Medications M4 PT-IP Mobility and Gait Start: 09/24/21 11:53 Freq: NEEDED Status: Active Protocol: Document 09/25/21 10:31 SP (Rec: 09/25/21 13:31 SP [id number]) PT-Bed Mobility Assessment Rolling Type of Rolling Log Rolling,Bilateral Level of Assist Standby Assistance Supine to Sit Supine to Sit Standby Assistance Sit to Supine Sit to Supine Standby Assistance PT-Transfer Assessment Sit to and From Stand Sit to and from Stand Contact Guard Assistance, Minimal Assistance,1 Person Assistance,Use of Upper Extremities Equipment Transfer Assistive Device Gait Belt,Front Wheeled Walker Orthotic/Prosthetic Devices or Brace: No Transfers Transfer Destination Chair,Wheelchair Transfer Technique ambulated w/ FWW Transfer Ability Level of Assist Contact Guard Assistance, Minimal Assistance,1 Person Assistance,Use of Upper Extremities Comments Mobility Comments Pt supine in bed when arrived. Pt recalled 2/3 precautions, then with cues remembered no twisting, ed even includes turning over in bed. . Complete LR L with HOB flat and no rails (verbalized doesn 't have at home so can't use working together), only cue x1 for B knees bent better carryover. L SL>sit with good BLEs (verbal self cues) SBA with BUE WB on bed, good form, scoot to EOB BUE SBA, stable. Sit>L SL>supine> LSL>sit SBA with no cues required this rep . Sit>stand CGA- Min A w/ cues for quad facilitation into standing, cue R UE on bed and LUE on FWW. Ambulated around room to chair CGA-5%A dueto noted trunk small sways during turns. SPT cues fWW back fully and center front chair, almost sat on chair arm, reach back and slow descent 5%A cued hip hinge to maintain precucations no bending LS. Sit>stand CGA from chair ambulated to w/c in hallway, CGA to sit. Wheeled to stairs. Pt completed 1 PF step assimulate enterance home and 8 stairs w/ R or L hand rail to assimulate 2 flight steps at home to 2nd level, CGA- 5%A side stepping wtih BUE on rails, Min BUE pressure on rails noted. Pt able to ambulate back to room w/ FWW approx 200 ft w/c follow but not needed, step over step but slight trunk sway CGA and 5% A during turns with cues for stability. Pt returned to chair. RN HYPERBARIC arrived for vital check. AUTOMATIC SERGING MACHINE OPERATOR recommended RN HYPERBARIC provide pt with chair alarm and educated pt with sway and little support to trunk she was unaware was provided is a fall risk. Pt had call light and all needs in reach before left. WIll continue to assess progress in pm. At this time recommending 24/7 assist available or SNF for improve strengthening, balance for functional mobility. Gait Assessment Gait Gait Assistance Required: Contact Guard Assist,Minimum Assistance Distance (Feet) 200 Able to Maintain Weight Bearing Status Yes During Gait Assistive Devices Assistive Device Gait Belt,Front Wheeled Walker Orthotic/Prosthetic Devices or Brace: No Gait Deviations General Gait Pattern Antalgic,Decreased Stride Length,Decreased Feet Clearance,Lateral Trunk Lean Factors Limiting Gait Function Factors Limiting Gait Function Decreased Activity Tolerance, Decreased Strength,Difficulty Following Directions,Limited Range of Motion,Pain,Poor Balance,Poor Safety Awareness Comments Gait Comments See mobility comments Stair Climbing Assessment Evaluation Level of Assist On Stairs Contact Guard Assistance, Minimal Assistance,1 Person Assistance Devices Stair Climbing Assistive Devices Front Wheel Walker,Left Railing,Right Railing Technique/Endurance Stair Climbing Direction Ascend and Descend Stair Climbing Technique Step to Step Number of Steps Climbed 3 Stair Climbing Set # Repetitions (reps) 2 Comments Stair Climbing Comments complete 1 PF step w/ fWW CG- Min A for trunk stabililty and fWW respositioning, 2 flights of 3 stairs to as simulate home to 2nd level. PT-Balance Assessment Sitting Balance and Reactions Static Sitting Balance Ability Normal Dynamic Sitting Balance Ability Good Standing Balance and Reactions Static Standing Balance Ability Good Dynamic Standing Balance Ability Fair Device Used FWW M5 PT-IP Objective Assessments Start: 09/24/21 11:53 Freq: NEEDED Status: Active Protocol: Document 09/24/21 09:25 AB (Rec: 09/24/21 12:08 AB [id number]) Orientation Orientation/Cognition Level of Alertness Alert Orientation Name,Place,Situation Language Function Ability No Deficits Noted Safety Awareness Decreased Safety Awareness Memory Description Short Term Impaired Gross Range of Motion Lower Extremity ROM Assessment Within Functional Limits Strength Lower Extremity Strength Hip 3+/5 Knee 4-/5 Muscle Tone Muscle Tone WNL Yes M6 PT-IP Treatment Start: 09/24/21 11:53 Freq: NEEDED Status: Active Protocol: Document 09/25/21 10:31 SP (Rec: 09/25/21 13:31 SP [id number]) Physical Therapy Treatment Education Education Provided Precautions,Safety M7 PT-IP Assessment and Plan Start: 09/24/21 11:53 Freq: NEEDED Status: Active Protocol: Document 09/25/21 10:31 SP (Rec: 09/25/21 13:31 SP [id number]) PT Summary Assessment and Plan Potential Rehabilitation Potential Good Status of Condition at Evaluation Evolving Summary Impairments Pain,ROM,Strength,Balance, Coordination,Sensation,Tone, Cognition,Bed Mobility, Transfers,Gait,Activity Tolerance Progress Towards Goals Progressing Toward Goals,Slow Progress due to Activity Tolerance,Slow Progress - Other Assessment Summary pt requiring CG- min A with mobility using FWW and requires min cues for all tasks for adhering to back precaution and for safety. Informed pt regarding assistance need at home 02/02. asked pt if spouse or can get caregivers to come in to help . Asked pt if can come in tomorrow for caregiver training in am and stated that he can come in after 3 pm but spouse works and cannot be with pt all the time and spouse cannot take days off, suggested need further family/ friends to stay with her or recommend SNF for progress balance safety education needed for safe d/c. will continue to assess progress. Goals Bed Mobility Goal Independent Transfer Goal Independent,Front Wheeled Walker Gait Goal Independent,Front Wheel Walker Gait Distance 200 Other Goals up/down 1 step using FWW SBA up/down 8 steps L rail ascending SBA Days to Meet Goals 5 Frequency of Treatment Frequency Of Treatment Twice a Day Treatment Plan Physical Therapy Treatment Plan Bed Mobility Training,Transfer Training,Gait Training, Therapeutic Exercise,Balance Retraining,Post Op Education, Discharge Planning,Hot or Cold Pack,Neuromuscular Re-ed, Coordination Retraining,Manual Therapy Other Recommendations and Next Treatment find out if got FWW or Focus 4 WW. Further distance gait w / fWW, safety transfers and balance stability activities. REview precautions and safety techniques. Precautions Lumbar Precautions Log Roll,No Twisting,Limit Bending,Lifting Restriction of 10 lbs,Gait Belt above Incisional Area Recommendations To Nursing Amount of Assist Needed 1 Person Assist Discharge Recommendations PT Discharge Recommendations Home with 02/02 Assist Available,Home Health,SNF Rehab,Home vs SNF Equipment Needed for Home Before Find out if got 2 FWW? Discharge or did he get 2 4WW? Transportation Needs at Discharge Private Vehicle
--- NOTE | 2021-09-25 14:13 | PT.IPTN ---
Current Diagnoses Acute posthemorrhagic anemia (09/25/21) Spondylolisthesis, lumbosacral region (09/25/21) Spinal stenosis, lumbar region without neurogenic claudication (09/25/21) Arthrodesis status (09/25/21) Surgery Performed Operation Date: 09/23/21 07:45 Actual Procedures p L3-4, L4-5, L5-S1 TLIF w. posterior instrumentation-Robot - Phyllis Bucio MD Physical Therapy Treatment Note M2 PT-IP Current Condition Start: 09/24/21 11:53 Freq: NEEDED Status: Active Protocol: Document 09/25/21 14:43 SP (Rec: 09/25/21 14:58 SP [id number]) Physical Therapy Current Condition Current Condition Evaluation Date 09/24/21 Treatment Diagnosis s/p L3-4, L4-5, L5S1 TLIF; difficulty in walking Onset Date 09/23/21 M3 PT-IP Subjective Start: 09/24/21 11:53 Freq: NEEDED Status: Active Protocol: Document 09/25/21 14:43 SP (Rec: 09/25/21 14:58 SP [id number]) Subjective Physical Therapy Visit Type Type Treatment Note Visit Start Time 13:58 Visit Stop Time 14:13 Total Visit Minutes 15 Number of INTEGRITY DIRECTOR Visits 2 Physical Therapy Visit Comments Patient Comments agreeable to do PT Patient Goals going home with assistance of friends/ if needed. Therapy Pain Assessment Pain When Pain Assessed During Mobility Pain Present Pain Present Pain Reported Location Bilateral Lower Back Intensity 7 Scale Used 0/10 at rest, 7/10 back pain with mobility Description With Movement Pain Behaviors Facial Grimacing Pain Management Techniques Distraction,Re-positioning, Timing of Activity with Medications M4 PT-IP Mobility and Gait Start: 09/24/21 11:53 Freq: NEEDED Status: Active Protocol: Document 09/25/21 14:43 SP (Rec: 09/25/21 14:58 SP [id number]) PT-Bed Mobility Assessment Rolling Type of Rolling Log Rolling,Bilateral Level of Assist Standby Assistance Supine to Sit Supine to Sit Standby Assistance Sit to Supine Sit to Supine Standby Assistance PT-Transfer Assessment Sit to and From Stand Sit to and from Stand Contact Guard Assistance,Use of Upper Extremities Equipment Transfer Assistive Device Gait Belt,Front Wheeled Walker Orthotic/Prosthetic Devices or Brace: No Transfers Transfer Destination Bed Transfer Technique ambulated w/ FWW Transfer Ability Level of Assist Contact Guard Assistance,1 Person Assistance,Use of Upper Extremities Comments Mobility Comments Pt asleep when arrived, agreeable to working with PT. Completed supine> LR L> supine , scoot to EOB SBA no cues required, good demonstration of precautions and self verbalize sequencing. Sit> stand CGA w/ FWW. ambulated around room w/ fWW, CGA stable and pivot turns after stated can move FWW around herself vs walking in small turns, Mod BUE WB on FWW, step over step patterning. Pt further distance into hallway 60 ft out and back CGA good pivot turn, no LOB or sway. Pt reports more steady this afternoon and even after just woke up. Pt returned to EOB, completed stand>sit with proper HP and hip hinge >L SL> supine with good demonstration maintaining precautions. INTEGRITY DIRECTOR provided pillow under thighs for LS support and comfort. Pt had call light, bed alarmed and all needs in reach before left . INTEGRITY DIRECTOR discussed recommending HHPT and home 02/02 still think is safest vs home with assist availible. will continue to assess progress in am. Recommend caregiver training with , pt will talk to and coordiate with PT tomorrow. Gait Assessment Gait Gait Assistance Required: Standby Assistance,Contact Guard Assist,1 Person Assist Distance (Feet) 120 Able to Maintain Weight Bearing Status Yes During Gait Assistive Devices Assistive Device Gait Belt,Front Wheeled Walker Orthotic/Prosthetic Devices or Brace: No Gait Deviations General Gait Pattern Antalgic,Decreased Stride Length,Decreased Feet Clearance Factors Limiting Gait Function Factors Limiting Gait Function Decreased Activity Tolerance, Decreased Strength,Limited Range of Motion,Poor Balance Comments Gait Comments see mobility comments Stair Climbing Assessment Comments Stair Climbing Comments Assess again with during CGT. PT-Balance Assessment Sitting Balance and Reactions Static Sitting Balance Ability Normal Dynamic Sitting Balance Ability Good M5 PT-IP Objective Assessments Start: 09/24/21 11:53 Freq: NEEDED Status: Active Protocol: Document 09/24/21 09:25 AB (Rec: 09/24/21 12:08 AB [id number]) Orientation Orientation/Cognition Level of Alertness Alert Orientation Name,Place,Situation Language Function Ability No Deficits Noted Safety Awareness Decreased Safety Awareness Memory Description Short Term Impaired Gross Range of Motion Lower Extremity ROM Assessment Within Functional Limits Strength Lower Extremity Strength Hip 3+/5 Knee 4-/5 Muscle Tone Muscle Tone WNL Yes M6 PT-IP Treatment Start: 09/24/21 11:53 Freq: NEEDED Status: Active Protocol: Document 09/25/21 14:43 SP (Rec: 09/25/21 14:58 SP [id number]) Physical Therapy Treatment Education Education Provided Precautions,Safety M7 PT-IP Assessment and Plan Start: 09/24/21 11:53 Freq: NEEDED Status: Active Protocol: Document 09/25/21 14:43 SP (Rec: 09/25/21 14:58 SP [id number]) PT Summary Assessment and Plan Potential Rehabilitation Potential Good Status of Condition at Evaluation Evolving Summary Impairments Pain,ROM,Strength,Balance, Coordination,Sensation,Tone, Cognition,Bed Mobility, Transfers,Gait,Activity Tolerance Progress Towards Goals Progressing Toward Goals,Slow Progress due to Activity Tolerance,Slow Progress - Other Assessment Summary Pt required CG- SBA during all mobiltiy. Improved demonstraion maintain precautions during mobiltiy w/ FWW. NO LOB or deviations but states still not herself and would be nice to have someone with her for safety first couple days. Recommending home 24/7 vs with assist as needed . Will continue to assess progress. Goals Bed Mobility Goal Independent Transfer Goal Independent,Front Wheeled Walker Gait Goal Independent,Front Wheel Walker Gait Distance 200 Other Goals up/down 1 step using FWW SBA up/down 8 steps L rail ascending SBA Days to Meet Goals 5 Frequency of Treatment Frequency Of Treatment Twice a Day Treatment Plan Physical Therapy Treatment Plan Bed Mobility Training,Transfer Training,Gait Training, Therapeutic Exercise,Balance Retraining,Post Op Education, Discharge Planning,Hot or Cold Pack,Neuromuscular Re-ed, Coordination Retraining,Manual Therapy Other Recommendations and Next Treatment set up CGT with , Focus include stairsi. bed mob, transfers, 4WW (pt unsure if got FWW/ 4WW). Balance assessment. Precautions Lumbar Precautions Log Roll,No Twisting,Limit Bending,Lifting Restriction of 10 lbs,Gait Belt above Incisional Area Recommendations To Nursing Amount of Assist Needed 1 Person Assist Discharge Recommendations PT Discharge Recommendations Home with Assistance,Home with 24/7 Assist Available,Home Health Equipment Needed for Home Before Find out if got 2 FWW? Discharge or did he get 2 4WW? Transportation Needs at Discharge Private Vehicle
[2021-09-25] MEDS: SENNOSIDES 8.6 MG TABLET 17.2 MG PO (20:11)
[2021-09-25] MEDS: CITALOPRAM 10 MG TABLET PO (20:11)
[2021-09-25] MEDS: lamoTRIgine 100 MG TABLET PO (20:11)
[2021-09-25] MEDS: GABAPENTIN 300 MG CAPSULE 900 MG PO (20:11)
[2021-09-25] MEDS: ACETAMINOPHEN 325 MG TABLET 650 MG PO (20:12)
[2021-09-25] MEDS: hydrOXYzine pamoate 25 MG CAPSULE PO (20:12)
[2021-09-25] MEDS: AMLODIPINE 5 MG TABLET PO (20:13)
[2021-09-25] MEDS: SUMAtriptan 25 MG TABLET 100 MG PO (20:13)
[2021-09-26 00:55] VITALS: BP 123/62; PULSE 80; RESP 16; TEMP 37.2; O2SAT 95
[2021-09-26 04:58] VITALS: BP 132/76; PULSE 82; RESP 18; TEMP 37.1; O2SAT 97
[2021-09-26 08:00] VITALS: BP 124/55; PULSE 80; RESP 16; TEMP 37.1; O2SAT 95
[2021-09-26] MEDS: OXYCODONE IR 10 MG TABLET PO ×3 (08:03→14:07)
[2021-09-26] MEDS: FISH OIL 1,000 MG CAPSULE 1000 MG PO (08:03)
[2021-09-26] MEDS: DOCUSATE 100 MG CAPSULE PO (08:03)
[2021-09-26] MEDS: MULTIVITAMIN 1 TABLET 1 TAB PO (08:03)
[2021-09-26] MEDS: PROPRANOLOL ER 60 MG CAPSULE PO (08:04)
--- NOTE | 2021-09-26 08:59 | PT.IPTN ---
Current Diagnoses Acute posthemorrhagic anemia (09/24/21) Spondylolisthesis, lumbosacral region (09/24/21) Spinal stenosis, lumbar region without neurogenic claudication (09/24/21) Arthrodesis status (09/24/21) Surgery Performed Operation Date: 09/23/21 07:45 Actual Procedures p L3-4, L4-5, L5-S1 TLIF w. posterior instrumentation-Robot - Phyllis Bucio MD Physical Therapy Treatment Note M2 PT-IP Current Condition Start: 09/24/21 11:53 Freq: NEEDED Status: Active Protocol: Document 09/26/21 08:39 SP (Rec: 09/26/21 11:52 SP [id number]) Physical Therapy Current Condition Current Condition Evaluation Date 09/24/21 Treatment Diagnosis s/p L3-4, L4-5, L5S1 TLIF; difficulty in walking Onset Date 09/23/21 M3 PT-IP Subjective Start: 09/24/21 11:53 Freq: NEEDED Status: Active Protocol: Document 09/26/21 08:39 SP (Rec: 09/26/21 11:52 SP [id number]) Subjective Physical Therapy Visit Type Type Treatment Note Visit Start Time 08:39 Visit Stop Time 08:59 Total Visit Minutes 20 Number of CIGAR HEAD STRINGER Visits 3 Physical Therapy Visit Comments Patient Comments agreeable to do PT Patient Goals going home with assistance of friends and to support her Therapy Pain Assessment Pain When Pain Assessed During Mobility Pain Present Pain Present Pain Reported Location Bilateral Lower Back Intensity 8 Scale Used 5/10at rest, 8/10 during mobiltiy Description With Movement Pain Behaviors Facial Grimacing Pain Management Techniques Distraction,Re-positioning, Timing of Activity with Medications M4 PT-IP Mobility and Gait Start: 09/24/21 11:53 Freq: NEEDED Status: Active Protocol: Document 09/26/21 08:39 SP (Rec: 09/26/21 11:52 SP [id number]) PT-Bed Mobility Assessment Rolling Type of Rolling Log Rolling,Bilateral Level of Assist Standby Assistance Supine to Sit Supine to Sit Standby Assistance PT-Transfer Assessment Sit to and From Stand Sit to and from Stand Standby Assistance,Contact Guard Assistance,Use of Upper Extremities Equipment Transfer Assistive Device Gait Belt,Front Wheeled Walker Orthotic/Prosthetic Devices or Brace: No Transfers Transfer Destination Chair Transfer Technique ambulated w/ FWW Transfer Ability Level of Assist Standby Assistance,Contact Guard Assistance,1 Person Assistance,Use of Upper Extremities Comments Mobility Comments Complete LR L> sit, scoot to EOB SBA with good form use of BUE, reported increased LBP and was premedicated. Sit> stand w/4WW post education on proper use of brakes prior stand and release when mobilize. Ambulated around room w/ 4WW good safe pacing initially CGA>close SBA for awareness in case got 4WW at home, unsure. SHe progressed gait into hallway step over step gait, cued little wider stance and cell support operator brakes if needed for safety pacing. COmpleted 1 set stair mgt R HR ascend L HR descend side stepping CGA, increased UE WB on rail during LLE ascend due to pain in L anterior and lateral leg today . Pt opted to use FWW back to room with good pacing, stable close SBA for safety. Pt returned tochair when back in room. CIGAR HEAD STRINGER stated pt still unsure when walking and stated feels like wants someone near her and friend will be with her while at work. Pt is ok to return home with friend and to assist her. Suggested HHPT for progress balance, and funcitonal mobility with agreement. Gait Assessment Gait Gait Assistance Required: Standby Assistance,Contact Guard Assist,1 Person Assist Distance (Feet) 400 Able to Maintain Weight Bearing Status Yes During Gait Assistive Devices Assistive Device Gait Belt,Front Wheeled Walker ,4 Wheeled Walker Orthotic/Prosthetic Devices or Brace: No Gait Deviations General Gait Pattern Antalgic,Decreased Stride Length,Decreased Feet Clearance Factors Limiting Gait Function Factors Limiting Gait Function Decreased Activity Tolerance, Decreased Strength,Limited Range of Motion Comments Gait Comments See mobility comments Stair Climbing Assessment Evaluation Level of Assist On Stairs Contact Guard Assistance,1 Person Assistance Devices Stair Climbing Assistive Devices Left Railing,Right Railing Technique/Endurance Stair Climbing Direction Ascend and Descend Stair Climbing Technique Step to Step Number of Steps Climbed 3 Stair Climbing Set # Repetitions (reps) 1 Comments Stair Climbing Comments step to patterning, 1 HR side stepping, cGA, stable- friend should be ableto give this support, not need CGT. PT-Balance Assessment Sitting Balance and Reactions Static Sitting Balance Ability Normal Dynamic Sitting Balance Ability Good Standing Balance and Reactions Static Standing Balance Ability Good Dynamic Standing Balance Ability Fair Device Used FWW, 4WW M5 PT-IP Objective Assessments Start: 09/24/21 11:53 Freq: NEEDED Status: Active Protocol: Document 09/24/21 09:25 AB (Rec: 09/24/21 12:08 AB [id number]) Orientation Orientation/Cognition Level of Alertness Alert Orientation Name,Place,Situation Language Function Ability No Deficits Noted Safety Awareness Decreased Safety Awareness Memory Description Short Term Impaired Gross Range of Motion Lower Extremity ROM Assessment Within Functional Limits Strength Lower Extremity Strength Hip 3+/5 Knee 4-/5 Muscle Tone Muscle Tone WNL Yes M6 PT-IP Treatment Start: 09/24/21 11:53 Freq: NEEDED Status: Active Protocol: Document 09/26/21 08:39 SP (Rec: 09/26/21 11:52 SP [id number]) Physical Therapy Treatment Education Education Provided Precautions,Safety M7 PT-IP Assessment and Plan Start: 09/24/21 11:53 Freq: NEEDED Status: Active Protocol: Document 09/26/21 08:39 SP (Rec: 09/26/21 11:52 SP [id number]) PT Summary Assessment and Plan Potential Rehabilitation Potential Good Status of Condition at Evaluation Evolving Summary Impairments Pain,ROM,Strength,Balance, Coordination,Sensation,Tone, Cognition,Bed Mobility, Transfers,Gait,Activity Tolerance Progress Towards Goals Progressing Toward Goals,Slow Progress due to Activity Tolerance,Slow Progress - Other Assessment Summary Pt required CG- SBA during all mobiltiy for safety w/ fww/ 4WW,states doesn't feel completely stable. Has friend/ at home to support her if needed. Recommending HHPT for progress strength, balance toward functional mobility. Pt ok to return home when medicall stable and pain controlled. Goals Bed Mobility Goal Independent Transfer Goal Independent,Front Wheeled Walker Gait Goal Independent,Front Wheel Walker Gait Distance 200 Other Goals up/down 1 step using FWW SBA up/down 8 steps L rail ascending SBA Days to Meet Goals 5 Frequency of Treatment Frequency Of Treatment Twice a Day Treatment Plan Physical Therapy Treatment Plan Bed Mobility Training,Transfer Training,Gait Training, Therapeutic Exercise,Balance Retraining,Post Op Education, Discharge Planning,Hot or Cold Pack,Neuromuscular Re-ed, Coordination Retraining,Manual Therapy Other Recommendations and Next Treatment gait w/ 4WW, stairs for Focus strength, balance activities Precautions Lumbar Precautions Log Roll,No Twisting,Limit Bending,Lifting Restriction of 10 lbs,Gait Belt above Incisional Area Other Precautions good recall and demonstration to precautions Recommendations To Nursing Amount of Assist Needed Standby Assistance,1 Person Assist Discharge Recommendations PT Discharge Recommendations Home with Assistance,Home Health Equipment Needed for Home Before FWW/ 4WW Discharge Transportation Needs at Discharge Private Vehicle
[2021-09-26] MEDS: ACETAMINOPHEN 325 MG TABLET 650 MG PO (10:42)
--- NOTE | 2021-09-26 13:22 | PT.IPTN ---
Current Diagnoses Acute posthemorrhagic anemia (09/24/21) Spondylolisthesis, lumbosacral region (09/24/21) Spinal stenosis, lumbar region without neurogenic claudication (09/24/21) Arthrodesis status (09/24/21) Surgery Performed Operation Date: 09/23/21 07:45 Actual Procedures p L3-4, L4-5, L5-S1 TLIF w. posterior instrumentation-Robot - Phyllis Bucio MD Physical Therapy Treatment Note M2 PT-IP Current Condition Start: 09/24/21 11:53 Freq: NEEDED Status: Discharge Protocol: Document 09/26/21 08:39 SP (Rec: 09/26/21 11:52 SP [id number]) Physical Therapy Current Condition Current Condition Evaluation Date 09/24/21 Treatment Diagnosis s/p L3-4, L4-5, L5S1 TLIF; difficulty in walking Onset Date 09/23/21 M3 PT-IP Subjective Start: 09/24/21 11:53 Freq: NEEDED Status: Discharge Protocol: Document 09/26/21 13:02 [place] (Rec: 09/26/21 15:02 KS [id number]) Subjective Physical Therapy Visit Type Type Treatment Note Visit Start Time 13:02 Visit Stop Time 13:22 Total Visit Minutes 20 Number of SED [employer] Visits 4 Physical Therapy Visit Comments Patient Comments agreeable to do PT Patient Goals going home with assistance of friends and to support her M4 PT-IP Mobility and Gait Start: 09/24/21 11:53 Freq: NEEDED Status: Discharge Protocol: Document 09/26/21 13:02 [place] (Rec: 09/26/21 15:02 [place] [id number]) PT-Bed Mobility Assessment Rolling Type of Rolling Log Rolling,Roll to Left Level of Assist Contact Guard Assistance Supine to Sit Supine to Sit Contact Guard Assistance Sit to Supine Sit to Supine Contact Guard Assistance PT-Transfer Assessment Sit to and From Stand Sit to and from Stand Standby Assistance,Contact Guard Assistance,Use of Upper Extremities Equipment Transfer Assistive Device Gait Belt,Front Wheeled Walker Orthotic/Prosthetic Devices or Brace: No Transfers Transfer Destination Chair Transfer Technique ambulated w/ FWW Transfer Ability Level of Assist Standby Assistance,Contact Guard Assistance,1 Person Assistance,Use of Upper Extremities Comments Mobility Comments Pt in chair and friend present for caregiver training. Pt able to recall 3/3 precautions . Pt SBA for sit<>stand w/ FWW and then ambulated ~200 ft to practice stairs CGA. Pt ascended/descended 3 steps w/ BUE using L rail ascending diagonally step to pattern. Pt performed stairs a second time w/ CGA provided by her friend. Pt ambulated 200 ft back to room CGA w/ FWW by friend and performed logroll in and out of bed w/ friend providing CGA. Gait Assessment Gait Gait Assistance Required: Standby Assistance,Contact Guard Assist,1 Person Assist Distance (Feet) 400 Able to Maintain Weight Bearing Status Yes During Gait Assistive Devices Assistive Device Gait Belt,Front Wheeled Walker Orthotic/Prosthetic Devices or Brace: No Gait Deviations General Gait Pattern Antalgic,Decreased Stride Length,Decreased Feet Clearance Factors Limiting Gait Function Factors Limiting Gait Function Decreased Activity Tolerance, Decreased Strength,Limited Range of Motion Comments Gait Comments See mobility comments Stair Climbing Assessment Evaluation Level of Assist On Stairs Contact Guard Assistance,1 Person Assistance Devices Stair Climbing Assistive Devices Left Railing,Right Railing Technique/Endurance Stair Climbing Direction Ascend and Descend Stair Climbing Technique Step to Step Number of Steps Climbed 3 Stair Climbing Set # Repetitions (reps) 2 Comments Stair Climbing Comments step to patterning, 1 HR side stepping, cGA, stable- friend able to provide assist. PT-Balance Assessment Sitting Balance and Reactions Static Sitting Balance Ability Normal Dynamic Sitting Balance Ability Good Standing Balance and Reactions Static Standing Balance Ability Good Dynamic Standing Balance Ability Fair Device Used FWW, 4WW M5 PT-IP Objective Assessments Start: 09/24/21 11:53 Freq: NEEDED Status: Discharge Protocol: Document 09/24/21 09:25 AB (Rec: 09/24/21 12:08 AB [id number]) Orientation Orientation/Cognition Level of Alertness Alert Orientation Name,Place,Situation Language Function Ability No Deficits Noted Safety Awareness Decreased Safety Awareness Memory Description Short Term Impaired Gross Range of Motion Lower Extremity ROM Assessment Within Functional Limits Strength Lower Extremity Strength Hip 3+/5 Knee 4-/5 Muscle Tone Muscle Tone WNL Yes M6 PT-IP Treatment Start: 09/24/21 11:53 Freq: NEEDED Status: Discharge Protocol: Document 09/26/21 13:02 [place] (Rec: 09/26/21 15:02 [place] [id number]) Physical Therapy Treatment Education Education Provided Precautions,Safety M7 PT-IP Assessment and Plan Start: 09/24/21 11:53 Freq: NEEDED Status: Discharge Protocol: Document 09/26/21 13:02 TRINI (Rec: 09/26/21 15:02 [place] [id number]) PT Summary Assessment and Plan Potential Rehabilitation Potential Good Status of Condition at Evaluation Evolving Summary Impairments Pain,ROM,Strength,Balance, Coordination,Sensation,Tone, Cognition,Bed Mobility, Transfers,Gait,Activity Tolerance Progress Towards Goals Progressing Toward Goals,Slow Progress due to Activity Tolerance,Slow Progress - Other Assessment Summary Completed caregiver training w / pt and her friend who was able to provide assistance w/ bed mobility, logroll, transfers, ambulation, and stairs. Pt only requiring SBA to CGA and able to recall spinal precautions. She will benefit from HH to improve strength and functional mobility. Goals Bed Mobility Goal Independent Transfer Goal Independent,Front Wheeled Walker Gait Goal Independent,Front Wheel Walker Gait Distance 200 Other Goals up/down 1 step using FWW SBA up/down 8 steps L rail ascending SBA Days to Meet Goals 5 Frequency of Treatment Frequency Of Treatment Twice a Day Treatment Plan Physical Therapy Treatment Plan Bed Mobility Training,Transfer Training,Gait Training, Therapeutic Exercise,Balance Retraining,Post Op Education, Discharge Planning,Hot or Cold Pack,Neuromuscular Re-ed, Coordination Retraining,Manual Therapy Other Recommendations and Next Treatment gait w/ 4WW, stairs for Focus strength, balance activities Precautions Lumbar Precautions Log Roll,No Twisting,Limit Bending,Lifting Restriction of 10 lbs,Gait Belt above Incisional Area Other Precautions good recall and demonstration to precautions Recommendations To Nursing Amount of Assist Needed Standby Assistance,1 Person Assist Discharge Recommendations PT Discharge Recommendations Home with Assistance,Home Health Equipment Needed for Home Before FWW/ 4WW Discharge Transportation Needs at Discharge Private Vehicle
--- NOTE | 2021-09-26 13:30 | OT.IP.TRT ---
Current Diagnoses Acute posthemorrhagic anemia (09/24/21) Spondylolisthesis, lumbosacral region (09/24/21) Spinal stenosis, lumbar region without neurogenic claudication (09/24/21) Arthrodesis status (09/24/21) Surgery Performed Operation Date: 09/23/21 07:45 Actual Procedures p L3-4, L4-5, L5-S1 TLIF w. posterior instrumentation-Robot - Phyllis Bucio MD Occupational Therapy Treatment Note M2 OT-IP Current Condition Start: 09/24/21 14:00 Freq: Status: Active Protocol: Document 09/24/21 11:15 [facility] (Rec: 09/24/21 14:16 [facility] [id number]) Occupational Therapy Current Condition Current Condition Evaluation Date 09/24/21 Treatment Diagnosis S/p L3-4, L4-5, L5-S1 TLIF Diagnosis Onset Date 09/23/21 Post Operative Precautions Lumbar Precautions Log Roll,No Twisting,Limit Bending,Lifting Restriction of 10 lbs,Gait Belt above Incisional Area M3 OT- IP Subjective and Pain Start: 09/24/21 14:00 Freq: Status: Active Protocol: Document 09/26/21 13:42 [facility] (Rec: 09/26/21 13:59 [facility] [id number]) OT- Subjective Occupational Therapy Visit Type Type Treatment Note Visit Start Time 10:15 Visit Stop Time 13:40 Total Visit Minutes 85 Notes Pt seen for split treatment [id number] and [id number]. Able to talk to pt's friend that will be staying with her when her is not home. Occupational Therapy Visit Comments Patient Comments Pt wanting to shower and agreed to try self cathing. Patient/Caregiver Goals To go home. OT Pain Assessment Pain When Pain Assessed At Rest Pain Present Pain Present Denied Pain M4 OT- IP ADL's Start: 09/24/21 14:00 Freq: Status: Active Protocol: Document 09/26/21 13:42 [facility] (Rec: 09/26/21 13:59 [facility] [id number]) OT [id number] General Evaluation Self-Feeding Ability Independent OT ADL-Dressing General Eval Lower Body Dressing Ability Standby Assistance Comments OT Dressing Comments Pt issued LB dressing equipment and needing CORY vc to use at this time and would benefit from more practice. OT ADL-Toileting General Evaluation Toileting Ability Standby Assistance Comments OT Toileting Comments Set-up assist to have cathing items in front of her on the tray table as due to decreased balance not able to hold items in her hand and move without the FWW . Therefore it was suggested best to get a tray for the FWW to use or use of 4ww to put her items on. OT ADL-Bathing General Evaluation Bathing Ability Minimal Assistance Areas Needing Assistance Wash/Dry Back Comments OT Bathing Comments Pt able to do most of her shower and best to have use a shower chair and that would also benefit from getting a hand held shower spray. M5 OT- IP IADL's Start: 09/24/21 14:00 Freq: Status: Active Protocol: Document 09/24/21 11:15 [facility] (Rec: 09/24/21 14:16 [facility] [id number]) OT-Instrumental Activities of Daily Living Home Safety Awareness Home Safety Comments Pt a bit confused and groggy from pain medications and would benefit from / assist at home at this time for her safety and assist for needs. M6 OT- IP Functional Cognition Start: 09/24/21 14:00 Freq: Status: Active Protocol: Document 09/26/21 13:42 [facility] (Rec: 09/26/21 13:59 [facility] [id number]) Cognitive Factors Limiting Selfcare Function Cognitive Ability Level of Alertness Alert Patient Orientation Name,Place,Situation Attention Span Ability Capable of Focused Attention, Capable of Sustained Attention Ability to Follow Commands Able to Follow One Step Commands with Increased Time, Able to Follow One Step Commands with Repetition Memory Description Short Term Impaired Safety Awareness Decreased Ability to Apply Precautions,Underestimates Need for Assistance Cognitive Comments Cognitive Assessment Comments Pt still needing cues to incorporate her back precautions for ADl and mobility needs. Pt's friend has good understanding to be able to assist pt to help remind her to follow her back precautions. M7 OT- IP Mobility and Balance Start: 09/24/21 14:00 Freq: Status: Active Protocol: Document 09/26/21 13:42 [facility] (Rec: 09/26/21 13:59 [facility] [id number]) OT-Transfer Assessment Sit to and From Stand Sit to and from Stand Contact Guard Assistance Transfers Transfer Ability Contact Guard Assistance Technique Transfer Destination Bed,Chair,Shower Stall,Toilet Transfer Technique Stand Step Pivot Devices Transfer Assistive Devices Gait Belt,Front Wheeled Walker Comments Mobility Comments CGA to stand to FWW and assist when stepping over the threshold. OT- Balance Assessment Sitting Balance and Reactions Static Sitting Balance Ability Normal Dynamic Sitting Balance Ability Good Standing Balance and Reactions Static Standing Balance Ability Good Dynamic Standing Balance Ability Fair M8 OT- IP Objective Assessments Start: 09/24/21 14:00 Freq: Status: Active Protocol: Document 09/24/21 11:15 [facility] (Rec: 09/24/21 14:16 [facility] [id number]) OT-Muscle Tone Assessment Muscle Tone WNL Yes M9 OT- IP Assessment and Plan Start: 09/24/21 14:00 Freq: Status: Active Protocol: Document 09/26/21 13:42 [facility] (Rec: 09/26/21 13:59 [facility] [id number]) OT Summary Assessment and Plan Potential Rehabilitation Potential Good Analytic Complexity at Evaluation Low Summary OT Impairments Pain,Balance,Functional Cognition,Functional Mobility, Grooming,Dressing,Toileting, Bathing,Toilet Transfers, Shower Transfers,Activity Tolerance Progress Towards Goals Progressing Toward Goals Assessment Summary Pt still needing reminders to incorporate her back precautions for ADl and mobility needs. Pt's friend came in and participated in caregiver training and has good understanding to assist for all needs. Suggested best for pt to get a hand held shower spray and tray table for FWW or 4ww to help hold her cathing supplies when she has to cath herself. Pt to go home with 24/7 assist and home health. Goals Self-Feeding Goal Independent Grooming Goal Independent Dressing Goal Independent Toileting Goal Independent Bathing Goal Independent Toilet Transfer Goal Independent Shower Transfer Goal Independent Days to Meet Goals 7 Frequency of Treatment Frequency Of Treatment Once a Day Treatment Plan OT Treatment Plan ADL Training,Functional Cognition Training,Functional Mobility,Patient/Family Education,Discharge Planning Discharge Recommendations OT Discharge Recommendations Home with 24/7 Assist Available,Home Health Home Equipment Needs HHSP, FF tray table Transportation Needs at Discharge Private Vehicle
--- NOTE | 2021-09-26 15:59 | CM.DPNOTE ---
DC Note Plan: DC home w/friend via pov, friend to assist when spouse not present; [facility] services scheduled to open early next week Patient aware and agreeable to plan [facility] updated w/patient's DC; states they can accept patient's insurance JW
== END 2021-09-26 14:14 | disposition home or self-care (01) ==
LOC: OR 14:41 → AC 14:41
PROVIDERS: Admitting Provider Orthopaedic Surgery Orthopaedic Surgery of the Spine; PCP Nurse Practitioner Family; Referring Provider Orthopaedic Surgery Orthopaedic Surgery of the Spine; Visit Provider Orthopaedic Surgery Orthopaedic Surgery of the Spine
PROC: (CPT 22633; principal; 2021-09-23 07:45)
DX: M43.16 Spondylolisthesis, lumbar region (principal); M48.061 Spinal stenosis, lumbar region without neurogenic claudication; M54.16 Radiculopathy, lumbar region; D62 Acute posthemorrhagic anemia; I10 Essential (primary) hypertension; F41.9 Anxiety disorder, unspecified
CPT/HCPCS: 22633; 22634 ×2; 22842; 22853 ×3; 20939; 63052; 63053 ×2; 36415; 72100; 76000; 85014; 85018; 97116; 97162; 97165; 97530; 97535; G0378; A9270; C1713; C9290; J0171; J0330; J0690; J1170; J2250; J2704; J3010